=== PATIENT | male | born 1955 | race Caucasian/White ===

== ENCOUNTER 2022-11-01 07:05 | Emergency (ER) | payer MEDICARE, SELFPAY ==
[2022-11-01] VITALS (21 sets, daily range): BP systolic 169–226; BP diastolic 80–102; PULSE 55–240; RESP 11–47; TEMP 36.6; O2SAT 97–98; BMI 21.9
--- NOTE | 2022-11-01 07:09 | ED_ITS ---
HPI - Altered Mental Status General Chief Complaint: Altered Mental Status Stated Complaint: CONFUSION Time Seen by Provider: 11/01/22 07:09 History of Present Illness HPI narrative: Patient brought into the emergency department Via EMS with a complaint of confusion. Family called EMS this morning stating the patient was confused during the night. Patient arrives awake alert oriented ?4 without any complaints. She states the caregiver told him he might need some IV fluids. Patient denies any headache. He denies any blurred vision, difficulty with speech, paresthesias, focal weakness. He denies any cough, runny nose, or sore throat. He denies any chest pain, shortness of breath. He denies any nausea, vomiting, diarrhea, constipation, or abdominal pain. Patient denies any flank pain, hematuria, dysuria. He denies any fall or trauma. He Parkinson's, MS, and hypertension. Patient states his neurologist is at [facility]. Patient took all of his medications this morning. Related Data Home Medications Medication Instructions Recorded Confirmed amlodipine 5 mg tablet 5 mg PO BID 11/01/22 11/01/22 baclofen 20 mg tablet 20 mg PO Q8H 11/01/22 11/01/22 carbidopa 25 mg-levodopa 100 mg 2 tab PO .4 times a day 11/01/22 11/01/22 tablet clonazepam 0.5 mg tablet 0.5 mg PO Q12H 11/01/22 11/01/22 clonidine HCl 0.3 mg tablet 0.3 mg PO Q12H 11/01/22 11/01/22 lisinopril 20 mg tablet 20 mg PO DAILY 11/01/22 11/01/22 tamsulosin 0.4 mg capsule 0.4 mg PO BID 11/01/22 11/01/22 Previous Rx's Medication Instructions Recorded levofloxacin 500 mg tablet 500 mg PO DAILY 7 days #7 tabs 11/01/22 Allergies Allergy/AdvReac Type Severity Reaction Status Date / Time No Known Drug Allergies Allergy Verified 11/01/22 07:14 Review of Systems ROS Status of ROS 10 or more systems reviewed and unremarkable except as noted in history and below Exam Narrative Exam Narrative: Nurses notes and vital signs reviewed and patient is not hypoxic. General: Nontoxic, Well-appearing and in no apparent distress. Skin: Warm, dry, no pallor noted. No Rash Head: Normocephalic, atraumatic. Neck: Supple, non-tender. Eye: Pupils are equal, round and EOMI. No scleral icterus. Ears, Nose, Mouth, and Throat: TM clear, no posterior oropharynx erythema or nasal mucosal hypertrophy, uvula is mid-line Oral mucosa is moist Cardiovascular: Regular Rate and Rhythm without murmur, gallop or rub. Respiratory: No accessory muscle use or respiratory distress. Lungs are clear to auscultation, no wheezing, rales or rhonchi Chest Wall: no tenderness Back: No midline thoracic or lumbar vertebral tenderness. No CVA tenderness Musculoskeletal: normal ROM, no calf or popliteal tenderness, no lower extremity edema/swelling GI: Abdomen is soft, non-distended. Normal bowel sounds. No tenderness to palpation. No rebound, guarding, or rigidity noted. Neurological: A&O x4. No focal cranial nerve dysfunction observed. Moves all extremities. Patient is able to ambulate slowly with a shuffled gait. Psychiatric: Cooperative and interactive. Normal mood and affect. Constitutional Vital Signs, click to edit/add: Last Vital Signs Temp 98 F 11/01/22 07:07 Pulse 66 11/01/22 09:40 Resp 17 11/01/22 09:40 BP 186/98 H 11/01/22 09:39 Pulse Ox 98 11/01/22 09:40 O2 Del Method Room Air 11/01/22 07:20 Course Vital Signs Vital signs: Vital Signs Temperature 98 F 11/01/22 07:07 Pulse Rate 62 11/01/22 07:07 Respiratory Rate 18 11/01/22 07:07 Blood Pressure 198/91 H 11/01/22 07:07 Pulse Oximetry 98 11/01/22 07:07 Oxygen Delivery Method Room Air 11/01/22 07:07 Temperature 98 F 11/01/22 07:07 Pulse Rate 66 11/01/22 09:40 Respiratory Rate 17 11/01/22 09:40 Blood Pressure 186/98 H 11/01/22 09:39 Pulse Oximetry 98 11/01/22 09:40 Oxygen Delivery Method Room Air 11/01/22 07:20 MDM - Altered Mental Status MDM Narrative Medical decision making narrative: Studies were done and show hypokalemia patient is given 50 mEq of potassium b icarbonate. Chest x-ray shows a left lower lobe infiltrate versus mass. Patient was given Levaquin IV. Discharge home on Levaquin by mouth. Patient is not hypoxic, denies any cough, chest pain, shortness of breath. He is afebrile, does not have leukocytosis. Patient and family were advised he needs to follow up with his primary care doctor to obtain a CT scan, versus a follow-up x-ray after the antibiotics to confirm resolution. Patient's blood pressure was 190/98. Patient was given Vasotec. All results were discussed with patient and mother. Patient is not hypoxic, does not have any complaints and there is no criteria for admission. At this time the patient is without objective evidence of an acute process requiring hospitalization or inpatient management. The patient has remained hemodynamically stable. No additional indication for emergent studies at this time. I answered all questions. Discussed discharge instructions including standard anticipatory guidance and what should prompt a return to the emergency department, including if they get worse are not getting better or develops any new or concerning symptoms. I've given them specific time frame in which to follow-up, and who to follow-up with. The patient demonstrates understanding. Patient is nontoxic and stable for discharge with outpatient follow-up. This note was created with the assistance of a speech recognition program. Although the intention is to generate documents that actually reflects the content of the visit, no guarantees can be provided that every mistake has been identified and corrected by editing. Lab Data Attestation: I reviewed the patient's lab results. Labs: Lab Results 11/01/22 11/01/22 Range/Units 07:31 07:49 WBC 7.4 (4.0-11.0) 10^3/uL RBC 4.50 L (4.70-6.10) 10^6/uL Hgb 13.2 L (14.0-18.0) g/dL Hct 39.9 L (42.0-54.0) % MCV 88.7 (80.0-94.0) fL MCH 29.3 (25.9-34.0) pg MCHC 33.1 (29.9-35.2) g/dL RDW 14.2 (11.0-15.0) % Plt Count 273 (150-450) 10^3/uL MPV 9.8 (9.5-13.5) fL Neut % (Auto) 61.3 (43.0-75.0) % Lymph % (Auto) 24.4 (20.5-60.0) % [place] % (Auto) 8.3 (1.7-12.0) % Eos % (Auto) 5.3 (0.9-7.0) % Baso % (Auto) 0.4 (0.2-2.0) % Neut # (Auto) 4.5 (1.4-6.5) 10^3/uL Lymph # (Auto) 1.8 (1.2-3.8) 10^3/uL [place] # (Auto) 0.6 (0.3-0.8) 10^3/uL Eos # (Auto) 0.4 (0.0-0.7) 10^3/uL Baso # (Auto) 0.0 (0.0-0.1) 10^3/uL Abs Immat Gran (auto) 0.02 (0.00-0.03) 10^3/uL Imm/Tot Granulo (auto) 0.3 (0.0-0.5) % Sodium 142 (136-145) mmol/L Potassium 2.6 L* (3.5-5.1) mmol/L Chloride 105 (98-107) mmol/L Carbon Dioxide 30.9 (21.0-32.0) mmol/L Anion Gap 8.7 BUN 15.0 (7.0-18.0) mg/dL Creatinine 0.79 (0.70-1.30) mg/dL Est GFR ( Amer) >60 (>=60) Est GFR (Non-Af Amer) >60 (>=60) BUN/Creatinine Ratio 19.0 Glucose 89 (74-106) mg/dL Calcium 8.9 (8.5-10.1) mg/dL Total Bilirubin 0.5 (0.2-1.0) mg/dL AST 15 (15-37) U/L ALT 7 L (16-63) U/L Alkaline Phosphatase 72 (46-116) U/L Troponin I High Sens 7.7 (4.0-76.1) pg/mL Total Protein 7.4 (6.4-8.2) g/dL Albumin 3.5 (3.4-5.0) g/dL Globulin 3.9 g/dL Albumin/Globulin Ratio 0.9 Urine Color Yellow (YELLOW) Urine Clarity Clear (CLEAR) Urine pH 6.5 (5.0-9.0) Ur Specific [place] 1.015 (1.005-1.025) Urine Protein Negative (NEG/TRACE) mg/dL Urine Glucose (UA) Negative (NEGATIVE) mg/dL Urine Ketones Negative (NEGATIVE) mg/dL Urine Occult Blood Negative (NEGATIVE) Urine Nitrite Negative (NEGATIVE) Urine Bilirubin Negative (NEGATIVE) Urine Urobilinogen 0.2 (0.2-1.0) EU/dL Ur Leukocyte Esterase Negative (NEGATIVE) ECG Data Attestation: I personally reviewed and interpreted this ECG as follows: Interpretation: Sinus rhythm 65 bpm. There are no acute ischemic changes. 1st degree AV block Discharge Plan Discharge Chief Complaint: Altered Mental Status Clinical Impression: Altered mental status, Pneumonia, Acute hypokalemia, Hypertension Patient Disposition: Home, Self-Care Time of Disposition Decision: 09:37 Condition: Good Mode of Transportation: Private Vehicle Prescriptions / Home Meds: New levofloxacin 500 mg tablet 500 mg PO DAILY 7 Days Qty: 7 0RF No Action amlodipine 5 mg tablet 5 mg PO BID baclofen 20 mg tablet 20 mg PO Q8H carbidopa-levodopa 25-100 mg tablet 2 tab PO .4 times a day clonazepam 0.5 mg tablet 0.5 mg PO Q12H clonidine HCl 0.3 mg tablet 0.3 mg PO Q12H lisinopril 20 mg tablet 20 mg PO DAILY tamsulosin 0.4 mg capsule 0.4 mg PO BID Instructions: Hypokalemia (ED), Altered Mental Status (ED), Pneumonia (ED) Additional Instructions: Follow-up with primary care doctor to discuss this visit. We'll need to get a CT scan of her chest, or an x-ray after he completed the antibiotics to ensure that the infiltrate has cleared and there is no mass. Stand Alone Forms: Portal Instructions Referrals: All Redmond DO [Primary Care Provider] - 1 week Discharge Date/Time: 11/01/22 09:58
--- NOTE | 2022-11-01 07:14 | ECG_ITS ---
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
[2022-11-01 07:40] LABS: Basophils Percent Auto 0.4 % (0.2-2.0); Eosinophils Absolute Auto 0.4 10^3/uL (0.0-0.7); Eosinophils Percent Auto 5.3 % (0.9-7.0); Hematocrit 39.9 % (42.0-54.0); Hemoglobin 13.2 g/dL (14.0-18.0); Immature Granulocytes Abs Auto 0.02 10^3/uL (0.00-0.03); Immature Granulocytes Pct Auto 0.3 % (0.0-0.5); Lymphocytes Absolute Auto 1.8 10^3/uL (1.2-3.8); Lymphocytes Percent Auto 24.4 % (20.5-60.0); Mean Corpuscular HGB Conc 33.1 g/dL (29.9-35.2); Mean Corpuscular Hemoglobin 29.3 pg (25.9-34.0); Mean Corpuscular Volume 88.7 fL (80.0-94.0); Mean Platelet Volume 9.8 fL (9.5-13.5); Monocytes Absolute Auto 0.6 10^3/uL (0.3-0.8); Monocytes Percent Auto 8.3 % (1.7-12.0); Neutrophils Absolute Auto 4.5 10^3/uL (1.4-6.5); Neutrophils Percent Auto 61.3 % (43.0-75.0); Platelet Count 273 10^3/uL (150-450); Red Cell Distribution Width 14.2 % (11.0-15.0); White Blood Count 7.4 10^3/uL (4.0-11.0)
--- NOTE | 2022-11-01 07:40 | CT_ITS ---
The [address] [address] Patient Name: BRANDY ROWAN MRN: [id number] date: 1955 Sex: M Assigned Patient Location: ER Current Patient Location: ER Accession/Order Number: [id number] Exam Date: 11/01/2022 07:25 Report Date: 11/01/2022 07:59 At the request of: RADHA HARVEY Procedure: CT head/brain wo con EXAMINATION: CT head/brain wo con HISTORY: MS CHANGES COMPARISON: No relevant comparison available. TECHNIQUE: Axial CT images were obtained without IV contrast. Dose reduction techniques were achieved by using automated exposure control and/or adjustment of mA and/or kV according to patient size and/or use of iterative reconstruction technique. FINDINGS: BRAIN: Areas of decreased attenuation involving the periventricular and subcortical deep white matter bilaterally, slightly greater within the right frontal lobe, favoring chronic small vessel ischemic changes. No edema, hemorrhage, mass, acute infarction, or inappropriate atrophy. CSF SPACES: No hydrocephalus, subarachnoid hemorrhage, or mass. Appropriate for age. SKULL: No fracture, mass, or other significant visible lesion. SINUSES: No significant mucosal thickening or fluid on the limited views. ORBITS: No appreciable abnormality on the limited views. OTHER: Negative CT/CT head/brain wo con IMPRESSION: 1. No intracranial hemorrhage or appreciable acute abnormality. 2. Age consistent atrophy and chronic small vessel ischemic changes. Electronically authenticated by: MU BARRETT Date: 11/01/2022 07:59
--- NOTE | 2022-11-01 07:40 | XR_ITS ---
The [address] [address] Patient Name: BRANDY ROWAN MRN: [id number] date: 1955 Sex: M Assigned Patient Location: ER Current Patient Location: ER Accession/Order Number: [id number] Exam Date: 11/01/2022 07:25 Report Date: 11/01/2022 07:51 At the request of: RADHA HARVEY Procedure: XR chest 1V EXAMINATION: XR chest 1V HISTORY: MS CHANGES COMPARISON: No relevant comparison available. FINDINGS: LUNGS: Area of increased density within left lung base approximately 4.1 cm in diameter. Right lung is clear. VASCULATURE: No increased pulmonary vasculature. PLEURA: No pneumothorax, effusion, or pleural thickening. CARDIAC: No cardiomegaly or cardiac silhouette abnormality. MEDIASTINUM: No visible mass or adenopathy. BONES: No fracture or visible bone lesion. OTHER: Negative. XR/XR chest 1V IMPRESSION: 1. Moderate left infrahilar infiltrates versus mass. Findings favor infiltrates/pneumonia. Electronically authenticated by: MU BARRETT Date: 11/01/2022 07:51
[2022-11-01 07:59] LABS: Alanine Aminotransferase 7 U/L (16-63); Albumin Globulin Ratio 0.9; Albumin Level 3.5 g/dL (3.4-5.0); Alkaline Phosphatase 72 U/L (46-116); Anion Gap 8.7; Aspartate Amino Transferase 15 U/L (15-37); Bilirubin Total 0.5 mg/dL (0.2-1.0); Calcium 8.9 mg/dL (8.5-10.1); Carbon Dioxide 30.9 mmol/L (21.0-32.0); Chloride 105 mmol/L (98-107); Estimated GFR (African America >60 (>=60); Estimated GFR (Non-African Ame >60 (>=60); Globulin 3.9 g/dL; Glucose 89 mg/dL (74-106); Sodium 142 mmol/L (136-145); Total Protein 7.4 g/dL (6.4-8.2); Troponin I High Sensitivity 7.7 pg/mL (4.0-76.1)
[2022-11-01 08:01] LABS: Potassium 2.6 mmol/L (3.5-5.1)
[2022-11-01 08:07] LABS: Bilirubin Urine NEGATIVE (NEGATIVE); Blood Urine NEGATIVE (NEGATIVE); Clarity Urine CLEAR (CLEAR); Color Urine YELLOW (YELLOW); Glucose Urine UA NEGATIVE (NEGATIVE); Ketones Urine NEGATIVE (NEGATIVE); Leukocyte Esterase Urine NEGATIVE (NEGATIVE); Nitrite Urine NEGATIVE (NEGATIVE); Protein Urine NEGATIVE (NEG/TRACE); Specific Gravity Urine 1.015 (1.005-1.025); Urine Microscopic Indicated NO; Urobilinogen Urine 0.2 EU/dL (0.2-1.0); pH Urine 6.5 (5.0-9.0)
[2022-11-01] MEDS: POTASSIUM BICARBONATE/CIT 25 MEQ TABLET EFF 50 MEQ PO (08:22)
[2022-11-01] MEDS: LEVOFLOXACIN IN DEXTROSE 5 % 750 MG/150 ML PIGGYBACK IV (08:23)
[2022-11-01] MEDS: 0.9 % SODIUM CHLORIDE 1,000 ML 1000 ML IV (08:23)
[2022-11-01] MEDS: ENALAPRILAT DIHYDRATE 1.25 MG/ML VIAL IV (09:39)
--- NOTE | 2022-11-01 09:54 | PC.NURSE ---
pt family is concerned with taking pt home at this time. family requested to speak with SS. Kenna was notified and is talking with family in the lobby. Dr. Chan was notified. per Dr. Chan pt is cleared to be discharged home at this time.
--- NOTE | 2022-11-01 10:20 | SWNOTE1 ---
SW was called down to ER waiting room by ER registration as family wanted to talk with LEW. Pt is being discharged. LEW met with pt, pt's mother, pt's sister, and pt's brother in law. Pt is alert and oriented at this time and so is his mother who is 97 years old. Pt lives with his mother. Pt's sister and brother in law have concerns about the living situation and that pt's mother is caring for pt at 89 years old. Pt sitting in wheelchair right now and has a cane. He voiced that he does get up and use his cane at home. They do have meals on wheels at home and a cleaning lady who comes in 1x every 2 weeks. Pt's mother uses a cane and walker at home. Pt's family concerned about safety at home and the well being of pt's mother and pt at home. LEW let everyone know that in order for pt to go to a alf residential or assisted living, pt would have to agree to do this since he is alert and oriented. At this time he does not. Pt's mother also stated they are fine at home. SW did let them know about pricing and also recommended the possibility of private caregivers coming in as well. LEW mentioned HH, but not sure pt would qualify and pt's sister voiced they do not do anything anyways. At this time, pt and pt's mother who he lives with voiced they are fine. Pt's mother agreed to take resources that LEW will print of area nursing homes and assisted living facilities and private caregivers. Pt's brother in law walked with SW to get resources. He did voice several concerns. He stated pt has fallen at home, pt's mother pushes him around in wheelchair, pt does not get up out of bed, he only showers 1x every 2 weeks, pt is now wetting the bed, pt's mother has to clean his sheets and wash them, concerns for pt not taking his meds properly, and just concerns for there safety at home. Pt's mother owns the home. Pt's brother in law voiced that pt can afford to pay for a alf, but he is not agreeable. At this time SW recommended to brother in law to make a report to Adult Protective Services. Pt's brother in law does voice understanding and took resources to family and will call APS.
== END 2022-11-01 09:58 | disposition home or self-care (01) ==
PROVIDERS: Emergency Provider Emergency Medicine; PCP Internal Medicine
DX: J18.9 Pneumonia, unspecified organism (principal); I10 Essential (primary) hypertension; E87.5 Hyperkalemia; R41.82 Altered mental status, unspecified; Z79.899 Other long term (current) drug therapy; I44.0 Atrioventricular block, first degree
CPT/HCPCS: 36415; 70450; 71045; 80053; 81003; 84484; 85025; 87040; 93005; 96361; 96374; 96375; 99285

== ENCOUNTER 2023-05-08 10:40 | Emergency (ER) | payer MEDICARE, SELFPAY ==
[2023-05-08 10:43] VITALS: BP 204/97; PULSE 84; RESP 20; TEMP 36.7; O2SAT 99; BMI 21.9
--- NOTE | 2023-05-08 10:46 | XR_ITS ---
The [address] [address] Patient Name: BRANDY ROWAN MRN: [id number] date: 1955 Sex: M Assigned Patient Location: ER Current Patient Location: ER Accession/Order Number: [id number] Exam Date: 05/08/2023 11:00 Report Date: 05/08/2023 11:21 At the request of: DARIUS STAPLES Procedure: XR shoulder RT min 2V PROCEDURE: XR shoulder RT min 2V HISTORY: fall, pain ; right shoulder pain COMPARISON: None. FINDINGS: BONES:Narrowing of the acromioclavicular joint with large undersurface osteophytes. Unremarkable glenohumeral joint. No fracture, dislocation, bone lesion. Irregularity of posterior right 5th rib suspected to be sequela of remote fracture. SOFT TISSUES:No visible soft tissue swelling. EFFUSION:None visible. OTHER: Negative. XR/XR shoulder RT min 2V IMPRESSION: 1. No acute bone abnormality. 2. Degenerative changes of the acromioclavicular joint which would predispose to rotator cuff injury. Electronically authenticated by: MU BARRETT Date: 05/08/2023 11:21
--- NOTE | 2023-05-08 10:47 | ED_ITS ---
HPI - Extremity Injury (Upper) General Chief Complaint: Extremity Injury, Upper Stated Complaint: FALL/R SHOULDER PAIN Time Seen by Provider: 05/08/23 10:46 Source: patient Mode of arrival: ambulance Limitations: no limitations History of Present Illness HPI narrative: 67-year-old male presents to the emergency department for pain in his right shoulder. He fell out of bed today about 9 AM and landed on his shoulder onto the floor. No other injury was sustained. He did not hit his head or a piece of furniture. No pain in the elbow or wrist. The pain is moderate and worse when he moves it. Related Data Home Medications Medication Instructions Recorded Confirmed amlodipine 5 mg tablet 5 mg PO BID 11/01/22 11/01/22 baclofen 20 mg tablet 20 mg PO Q8H 11/01/22 11/01/22 carbidopa 25 mg-levodopa 100 mg 2 tab PO .4 times a day 11/01/22 11/01/22 tablet clonazepam 0.5 mg tablet 0.5 mg PO Q12H 11/01/22 11/01/22 clonidine HCl 0.3 mg tablet 0.3 mg PO Q12H 11/01/22 11/01/22 lisinopril 20 mg tablet 20 mg PO DAILY 11/01/22 11/01/22 tamsulosin 0.4 mg capsule 0.4 mg PO BID 11/01/22 11/01/22 Previous Rx's Medication Instructions Recorded levofloxacin 500 mg tablet 500 mg PO DAILY 7 days #7 tabs 11/01/22 ibuprofen 800 mg tablet 800 mg PO Q8H PRN pain #20 tabs 05/08/23 Allergies Allergy/AdvReac Type Severity Reaction Status Date / Time No Known Drug Allergies Allergy Verified 11/01/22 07:14 Review of Systems ROS Narrative A ten point review of systems is negative except as noted above. PFSH PFSH Social History Smoking status: Former smoker Exam Narrative Exam Narrative: Nurses note and vital signs reviewed and patient is not hypoxic. General: The patient appears well and in no apparent distress. Patient is re sting comfortably on cart. Skin: Warm, dry, no pallor noted. There is no rash noted. Head: Normocephalic, atraumatic Eye: Normal conjunctiva, no drainage Ears, Nose, Mouth, and Throat: oral mucosa is moist. Nares patent. Cardiovascular: Regular Rate and Rhythm Respiratory: Patient is in no distress, no accessory muscle use, lungs are clear to auscultation, no wheezing, rales or rhonchi Back: non-tender GI: Soft and nontender Musculoskeletal: The right shoulder has no deformity or bruising or break in the skin. It has fair range of motion. The right elbow and wrist are nontender. Radial pulse 2+. Cervical spine and right ribs are nontender. Neurological: A&O, normal speech Psychiatric: Cooperative Constitutional Vital Signs, click to edit/add: Last Vital Signs Temp 98.1 F 05/08/23 10:43 Pulse 84 05/08/23 10:43 Resp 20 05/08/23 10:43 BP 204/97 H 05/08/23 10:43 Pulse Ox 99 05/08/23 10:43 O2 Del Method Room Air 05/08/23 10:43 Course Vital Signs Vital signs: Vital Signs Temperature 98.1 F 05/08/23 10:43 Pulse Rate 84 05/08/23 10:43 Respiratory Rate 20 05/08/23 10:43 Blood Pressure 204/97 H 05/08/23 10:43 Pulse Oximetry 99 05/08/23 10:43 Oxygen Delivery Method Room Air 05/08/23 10:43 Temperature 98.1 F 05/08/23 10:43 Pulse Rate 84 05/08/23 10:43 Respiratory Rate 20 05/08/23 10:43 Blood Pressure 204/97 H 05/08/23 10:43 Pulse Oximetry 99 05/08/23 10:43 Oxygen Delivery Method Room Air 05/08/23 10:43 MDM - Extremity Injury (Upper) MDM Narrative Medical decision making narrative: X-ray shows no acute findings. Repeat exam at 11:30 AM shows him to have full range of motion of the shoulder. I do not suspect a torn rotator cuff. He is prescribed ibuprofen and will follow-up with his PCP if symptoms do not improve. Treatment diagnosis and follow-up were discussed with the patient Imaging Data Right shoulder x-ray: Radiologist's impression: ITS Impressions Shoulder X-Ray 05/08/23 10:46 IMPRESSION: 1. No acute bone abnormality. 2. Degenerative changes of the acromioclavicular joint which would predispose to rotator cuff injury. Electronically authenticated by: MU BARRETT Date: 05/08/2023 11:21 Discharge Plan Discharge Stand Alone Forms: Portal Instructions Chief Complaint: Extremity Injury, Upper Clinical Impression: Contusion of right shoulder Patient Disposition: Home, Self-Care Time of Disposition Decision: 11:40 Condition: Good Mode of Transportation: Private Vehicle Prescriptions / Home Meds: New ibuprofen 800 mg tablet 800 mg PO Q8H PRN (Reason: pain) Qty: 20 0RF No Action amlodipine 5 mg tablet 5 mg PO BID baclofen 20 mg tablet 20 mg PO Q8H carbidopa-levodopa 25-100 mg tablet 2 tab PO .4 times a day clonazepam 0.5 mg tablet 0.5 mg PO Q12H clonidine HCl 0.3 mg tablet 0.3 mg PO Q12H lisinopril 20 mg tablet 20 mg PO DAILY tamsulosin 0.4 mg capsule 0.4 mg PO BID levofloxacin 500 mg tablet 500 mg PO DAILY 7 Days Qty: 7 0RF Instructions: Contusion in Adults (ED) Referrals: All Redmond DO [Primary Care Provider] - 1 week
== END 2023-05-08 12:29 | disposition home or self-care (01) ==
PROVIDERS: Emergency Provider Emergency Medicine; PCP Internal Medicine
DX: S40.011A Contusion of right shoulder, initial encounter (principal); W06.XXXA Fall from bed, initial encounter; Z79.899 Other long term (current) drug therapy; Z87.891 Personal history of nicotine dependence
CPT/HCPCS: 73030; 99283

== ENCOUNTER 2023-05-25 08:00 | Emergency (ER) | payer MEDICARE, SELFPAY ==
[2023-05-25] VITALS (43 sets, daily range): BP systolic 148–193; BP diastolic 79–114; PULSE 86–114; TEMP 37; O2SAT 89–97; BMI 18.8
--- OUTSIDE RECORDS SUMMARY | 2023-05-25 08:10 | XMS_ITS | CCD ---
Author Organization [facility] Care Team Providers Care Night Stocker Name Role Phone DR ALL REDMOND Primary Care Unavailable NOREEN ACOSTA Admitting Unavailable NOREEN ACOSTA Attending Unavailable NOREEN ACOSTA Consulting Unavailable All Redmond DO Primary Care Provider All Redmond DO Primary Care Provider All Redmond PROVIDER, UNKNOWN Admitting Unavailable PROVIDER, UNKNOWN Attending Unavailable PROVIDER, UNKNOWN Admitting Unavailable PROVIDER, UNKNOWN Attending Unavailable Angel Luis RAY Attending Unavailable Allergies Allergy Classification Reported Allergen(s) Allergy Type Date of Onset Reaction(s) Facility (1 source) No Known Medication Allergies; Translations: [No Known Medication Allergies] Propensity to adverse reactions (disorder) [facility] Repository Medications Current Medications Medication Drug Class(es) Dates Sig (Normalized) Sig (Original) amoxicillin 875 mg / clavulanate 125 mg oral tablet (1 source) Penicillin-class Antibacterial Start: 05-15-2023 take 1 tablet by mouth twice daily Amoxicillin-Pot Clavulanate Active 1 TAB PO Twice daily 20 May 15, 2023 12:00am baclofen 20 mg oral tablet (20 sources) gamma-Aminobutyric Acid-ergic Agonist Start: 05-12-2023 take 1 tablet by mouth three times daily Baclofen Active 0 .ROUTE .COMPLEX 90 May 12, 2023 5:08pm TAKE 1 TABLET BY MOUTH 3 TIMES A DAY Start: 04-11-2023 End: 05-12-2023 take 20 mg by mouth three times daily Baclofen Discontinued 20 MG PO Three times daily 90 April 13, 2023 1:27pm May 12, 2023 5:08pm Start: 10-01-2019 take 1 tablet by emerson th three times daily as needed baclofen (LIORESAL) 20 mg tablet TAKE ONE TABLET BY MOUTH 3 TIMES DAILY NEEDED 90 tablet 5 10/01/2019 Active Comment on above: TAKE ONE TABLET BY [facility] 3 TIMES DAILY NEEDED clonazePAM 0.5 mg oral tablet (17 sources) Benzodiazepine Start: 03-23-2023 clonazePAM 0.5 mg TAKE ONE TABLET BY MOUTH TWICE A DAY NEEDED FOR ANXIETY Orally bid for 30 days Feb, Active Start: 01-10-2023 take 1 tablet by emerson twice daily as needed for anxiety clonazePAM 0.5 mg TAKE ONE TABLET BY MOUTH TWICE A DAY NEEDED FOR ANXIETY for 30 Dec, Active Start: 09-17-2022 take 1 tablet by emerson twice daily as needed clonazePAM 0.5 mg 1 tablet Orally twice a day as needed Aug, Active Start: 04-29-2022 take 1 tablet by emerson twice daily as needed for anxiety clonazePAM 0.5 mg TAKE ONE TABLET BY MOUTH TWICE A DAY NEEDED FOR ANXIETY Apr, Active Comment on above: Take 0.5 mg by mouth as needed. potassium chloride 10 meq extended release oral tablet (16 sources) take 1 tablet by mouth every twelve hours Klor-Con 10 10 MEQ 1 tablet with food Orally Twice a day Active take 1 tablet by emerson once daily as needed Potassium Chloride ER 10 MEQ TAKE 1 TABL ET BY MOUTH DAILY for 90 Not-Taking/PRN tamsulosin hydrochloride 0.4 mg oral capsule (17 sources) alpha-Adrenergic Milana Start: 09-17-2022 take 1 capsule by mouth every twenty-four hours Tamsulosin HCl 0.4 MG 1 capsule Orally Once a day Aug, Active Start: 05-14-2022 take 1 capsule by [facility] every twenty-four hours Tamsulosin HCl 0.4 MG 1 capsule Orally Once a day for 30 days Apr, Active Comment on above: Take 0.4 mg by mouth . Completed/Discontinued Medications Medication Drug Class(es) Dates Sig (Normalized) Sig (Original) amLODIPine 5 mg oral tablet (17 sources) Dihydropyridine Calcium Channel Milana Start: 06-09-2019 take 1 tablet by mouth once daily amLODIPine (NORVASC) 5 mg tablet Take 1 tablet by mouth once daily. 0 06/09/2019 Active Comment on above: Take 1 tablet by emerson once daily. aspirin 325 mg delayed release oral tablet (9 sources) Platelet Aggregation Inhibitor, Nonsteroidal Anti-inflammatory Drug Start: 08-08-2010 take 1 tablet by mouth once daily aspirin, enteric coated (ECOTRIN) 325 mg ORAL EC tablet Take 1 tablet by mouth once daily. 0 08/08/2010 Active Comment on above: Take 1 tablet by emerson once daily. carbidopa 25 mg / levodopa 100 mg oral tablet (20 sources) Aromatic Amino Acid Decarboxylation Inhibitor, Aromatic Amino Acid Start: 11-19-2021 End: 03-07-2022 take 2 tablets by mouth four times daily carbidopa-levodopa (SINEMET 25-100) 25-100 mg per tablet Indications: Primary parkinsonism Take 2 tablets by mouth four times daily 240 tablet 0 03/07/2022 Active take 1 tablet by emerson two times weekly as needed Sinemet 25-100 MG 1 tablet as needed Orally Two times a Week Active Comment on above: Take 2 tablets by mo [facility] four times daily carvedilol 25 mg oral tablet (9 sources) alpha-Adrenergic Milana, beta-Adrenergic Milana Start: 3 take 1 tablet by mouth twice daily at mealtime CARVEDILOL 25 mg tablet Take 25 mg by mouth twice daily with meals. 0 02/15/2013 Active Comment on above: Take 25 mg by mouth twice daily with meals. cloNIDine hydrochloride 0.2 mg oral tablet (15 sources) Central alpha-2 Adrenergic Agonist Start: 3 take 1 tablet by mouth twice daily CLONIDINE 0.2 mg tablet Take 0.2 mg by mouth twice daily. 0 02/18/2013 Active take 1 tablet by emerson every twelve hours cloNIDine HCl 0.3 MG 1 tablet Orally aron ry 12 hours Active Comment on above: Take 0.2 mg by mouth twice daily. lisinopril 20 mg oral tablet (17 sources) Angiotensin Converting Enzyme Inhibitor Start: 02-15-2013 take 1 tablet by mouth twice daily LISINOPRIL 20 mg tablet Take 20 mg by mouth twice daily. 0 02/15/2013 Active take 1 tablet by emerson every twenty-four hours Lisinopril 20 MG 1 tablet Orally Once a day Active Comment on above: Take 20 mg by mouth twice daily. modafinil 100 mg oral tablet (8 sources) Sympathomimetic-like Agent Start: 0 take 1 tablet by mouth once daily modafinil (PROVIGIL) 100 mg tablet Indications: Malaise and fatigue TAKE ONE TABLET BY MOUTH ONCE DAILY 30 tablet 5 05/28/2019 Active Comment on above: TAKE ONE TABLET BY M OUTH ONCE DAILY solifenacin succinate 10 mg oral tablet (9 sources) Cholinergic Muscarinic Antagonist take 1 tablet by mouth once daily solifenacin (VESICARE) 10 mg tablet Take 10 mg by mouth once daily. 0 Active Comment on above: Take 10 mg by mouth once daily. Suprep Bowel Prep . (8 sources) Start: Suprep Bowel Prep . as directed Orally as directed for 1 dose(s) Sep, Not-Taking/PRN Start: 09-28-2014 Suprep Bowel P rep . as directed Orally as directed for 1 dose(s) Sep, Not-Taking Walker (ULTRA-LIGHT ROLLATOR) misc (9 sources) Start: 10-20-2018 Walker (ULTRA- LIGHT ROLLATOR) misc Indications: Multiple sclerosis (HCC) Nitro Light Weight Rollator with seat 1 Each 0 10/20/2018 Active Comment on above: Nitro Light Weight R ollator with seat Problems Active Problems Problem Classification Problem Date Documented Date Episodic/Chronic Anxiety disorders (14 sources) Generalized anxiety disorder; Translations: [Generalized anxiety disorder] Chronic Deficiency and other anemia (3 sources) Chronic anemia; Translations: [Anemia in other chronic diseases classified elsewhere] Onset: 12-10-2015 Chronic Deficiency and other anemia (1 source) Iron deficiency anemia; Translations: [Iron deficiency anemia] Episodic Disorders of lipid metabolism (6 sources) Hyperlipidemia; Translations: [Hyperlipidemia, unspecified] Onset: 09-15-2014 Chronic Disorders of teeth and jaw (1 source) Dental abscess; Translations: [Periapical abscess without sinus] 05-15-2023 Episodic Diverticulosis and diverticulitis (1 source) Diverticulosis of sigmoid colon; Translations: [Sigmoid diverticulosis] Chronic Essential hypertension (20 sources) Hypertensive disorder; Translations: [Essential (primary) hypertension] Onset: 03-08-2013 03-08-2013 Chronic Fluid and electrolyte disorders (8 sources) Hypokalemia; Translations: [Hypokalemia] Episodic Genitourinary symptoms and ill-defined conditions (2 sources) Nocturia Episodic Hyperplasia of prostate (16 sources) Lower urinary tract symptoms due to benign prostatic hypertrophy; Translations: [Benign prostatic hyperplasia with lower urinary tract symptoms] Onset: 06-14-2013 Chronic Inflammatory conditions of male genital organs (11 sources) Abscess of scrotum; Translations: [Inflammatory disorders of scrotum] Episodic Multiple sclerosis (20 sources) Multiple sclerosis; Translations: [Multiple sclerosis] Onset: 09-17-2011 09-17-2011 Chronic Nutritional deficiencies (3 sources) Vitamin D deficiency; Translations: [Vitamin D deficiency, unspecified] Onset: 09-15-2014 Chronic Osteoarthritis (3 sources) Osteoarthritis; Translations: [Unspecified osteoarthritis, unspecified site] Onset: 06-14-2013 Chronic Other aftercare (1 source) FPC (current) use of aspirin; Translations: [COUNTER TOP ASSEMBLER CURRENT USE OF ASPIRIN] Onset: 05-29-2021 Episodic Other aftercare (2 sources) Other middle or intermediate school principal (current) drug therapy; Translations: [OTH USP CURRENT DRUG THERAPY] Onset: 05-29-2021 Episodic Other and unspecified benign neoplasm (1 source) History of polyp of colon; Translations: [History of colon polyps] Episodic Other diseases of bladder and urethra (8 sources) Bladder muscle dysfunction - overactive; Translations: [Overactive bladder] Chronic Other diseases of bladder and urethra (8 sources) Neurogenic bladder; Translations: [Neuromuscular dysfunction of bladder, unspecified] Chronic Other diseases of bladder and urethra (3 sources) Neurogenic dysfunction of the urinary bladder; Translations: [Neuromuscular dysfunction of bladder, unspecified] Chronic Other diseases of bladder and urethra (3 sources) Overactive bladder; Translations: [Overactive bladder] Chronic Other diseases of veins and lymphatics (11 sources) Peripheral venous insufficiency; Translations: [Venous insufficiency (chronic) (peripheral)] Episodic Other diseases of veins and lymphatics (3 sources) Venous insufficiency (chronic) (peripheral) Episodic Other lower respiratory disease (2 sources) Other nonspecific abnormal finding of lung field Episodic Other screening for suspected conditions (not mental disorders or infectious disease) (1 source) Encounter for screening for malignant neoplasm of prostate Episodic Other upper respiratory infections (3 sources) Acute maxillary sinusitis; Translations: [Acute maxillary sinusitis, unspecified] Episodic Parkinson`s disease (20 sources) Parkinson's disease; Translations: [Parkinson's disease] Onset: 06-19-2020 Chronic Screening and history of mental health and substance abuse codes (1 source) Personal history of nicotine dependence; Translations: [PERSONAL HISTORY OF NICOTINE DEPEND] Onset: 05-29-2021 Episodic Substance-related disorders (6 sources) Mental disorder due to drug; Translations: [Nicotine dependence, cigarettes, with unspecified nicotine-induced disorders] Onset: 09-15-2014 Chronic Unclassified (1 source) Parkinson's disease; Translations: [Primary parkinsonism] Onset: 06-19-2020 06-19-2020 Chronic Past or Other Problems Problem Classification Problem Date Documented Da te Episodic/Chronic Abdominal pain (3 sources) Abdominal pain; Translations: [Unspecified abdominal pain] Onset: 09-16-2014 Episodic Cardiac dysrhythmias (9 sources) Palpitations; Translations: [Palpitations] Onset: 03-08-2013 03-08-2013 Episodic Deficiency and other anemia (3 sources) Anemia; Translations: [Anemia, unspecified] Onset: 12-10-2015 Episodic Immunizations and screening for infectious disease (3 sources) Vaccination given; Translations: [Encounter for immunization] Onset: 12-12-2015 Episodic Nonspecific chest pain (9 sources) Chest pain; Translations: [Chest pain, unspecified] Onset: 03-08-2013 03-08-2013 Episodic Other gastrointestinal disorders (3 sources) Constipation; Translations: [Constipation, unspecified] Onset: 09-16-2014 Episodic Other lower respiratory disease (3 sources) Dyspnea; Translations: [Other forms of dyspnea] Onset: 02-15-2018 Episodic Other nutritional; endocrine; and metabolic disorders (3 sources) Abnormal weight loss; Translations: [Abnormal weight loss] Onset: 09-15-2014 Episodic Residual codes; unclassified (3 sources) Tobacco user; Translations: [Tobacco use] Onset: 09-15-2014 Episodic Results Test Name Value Interpretation Reference Range Facility [facility] 04-16-2022 [facility] Telephone ([facility]) TIEN ROWAN ([id number]) 1955 Date Time Provider Department 04/16/22 CRISTO DUNAWAY [facility] During your visit today, we recorded the following information about you: Cecelia Leary Sec 04/16/2022 2:56 PM Signed Benjamin Call Name of caller : Tien Rowan Relationship to patient: Self Return call phone number : [phone] Reason for call : Other : Brief description of concern : Patient is calling and due to see you on and wanted to call and discuss switching one of his docs he no longer wants to see that prescribes another med and wants you to start doing this. He has not been seen by you since 2019 and told him he needs to come in but wants to talk to you anyway. Please call to discuss further. Cailin Huang RN 04/16/2022 3:15 PM Signed Called patient Identified by name and date of - Patient is asking for his [facility] providers to mange his Sinemet. He took his tablet on 04/15/2022. - He has not seen Dr. Mckee since 08/2020 - Last seen in our office 08/2019 - He has a follow up visit scheduled on 04/18/2022 with Ayaka Guerra APRN, [employer]. - Patient was advised that his care team would be updated. He was told that the [facility] providers do not typically manage Sinemet. Ayaka Guerra APRN.[employer] 04/17/2022 12:39 PM Signed Unfortunately I can not take over his Sinemet prescription. I am happy to place another consult to Movement disorder if he would like. This would need to be managed by someone in that department. Cailin Huang RN 04/17/2022 1:49 PM Signed Called patient Identified by name and date of Reviewed recommendations Patient verbalized understanding and agrees with plan Patient was advised to contact his PCP to see if he will reorder the Sinemet until he is seen by a movement disorder provider. We discussed that he needs to follow up in person annually with his providers so they can continue to provide medication refills based on their annual evaluations. Patient would like the order for movement order. Ayaka Guerra APRN.FRANSISCA 04/17/2022 4:13 PM Signed Consult to Movement disorder placed. Patient last seen in 2020 Cailin Huang RN 04/18/2022 10:42 AM Signed Called patient, left message to call office If patient returns call, please relay message below: Is the patient keeping his appointment scheduled for today, 04/18/2022, @ 2:245 pm? If he needs to cancel, please transfer him to scheduling to reschedule with her. Ayaka Guerra APRN, CNP, did place a movement disorder order(neurology) in his chart. He may call [phone] to schedule an appointment with Dr. Sangeetha Stewart at [place]. Cailin Huang RN 04/18/2022 12:50 PM Signed Called patient Identified by name and date of Reviewed recommendations Movement disorder order(neurology) is in his chart. He may call [phone] to schedule an appointment with Dr. Sangeetha Stewart at [facility]. Patient verbalized understanding and agrees with plan Appointment scheduled today with Ayaka Guerra APRN, CNP cancelled due to transportation issues. Patient will contact the [facility] schedulers to reschedule. 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 - modafinil (PROVIGIL) 100 mg tablet TAKE ONE TABLET BY MOUTH ONCE DAILY - Walker (ULTRA-LIGHT ROLLATOR) misc Nitro Light Weight Rollator with seat - solifenacin (VESICARE) 10 mg tablet Take 10 mg by mouth once daily. - tamsulosin ER (FLOMAX) 0.4 mg cap Take 0.4 mg by mouth. - clonazePAM (KLONOPIN) 0.5 mg tablet Take 0.5 mg by mouth as needed. - CARVEDILOL 25 mg tablet Take 25 mg by mouth twice daily with meals. - CLONIDINE 0.2 mg tablet Take 0.2 mg by mouth twice daily. - LISINOPRIL 20 mg tablet Take 20 mg by mouth twice daily. - aspirin, enteric coated (ECOTRIN) 325 mg ORAL EC tablet Take 1 tablet by mouth once daily. 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] 06/19/2020 Encounter Status:Closed by CAILIN HUANG [facility]22 [facility] ([id number]) 1955 M Date Time Provider Department 04/16/22 CRISTO DUNAWAY [facility] During your visit today, we recorded the following information about you: Kristin Urena 04/16/2022 3:00 PM Signed [place] Call Name of caller : Tien Rowan Relationship to patient: Self Return call phone number : [phone] Reason for call : Other : Brief description of concern : would like a call back about his appointment on Allergies As of Date: 04/16/2022 (No Known Allergies) Date Reviewed: 12/06/2020 Reviewed by: Meghan Toro Ma - Fully Assessed Reason for Visit: Patient Question [3177] Prescriptions as of 03/28/2023 - carbidopa-levodopa (SINEMET 25-100) 25-100 mg per tablet Take 2 tablets by mouth four times daily - baclofen (LIORESAL) 20 mg tablet TAKE ONE TABLET BY MOUTH 3 TIMES DAILY NEEDED - amLODIPine (NORVASC) 5 mg tablet Take 1 tablet by mouth once daily. - modafinil (PROVIGIL) 100 mg tablet TAKE ONE TABLET BY MOUTH ONCE DAILY - Walker (ULTRA-LIGHT ROLLATOR) misc Nitro Light Weight Rollator with seat - solifenacin (VESICARE) 10 mg tablet Take 10 mg by mouth once daily. - tamsulosin ER (FLOMAX) 0.4 mg cap Take 0.4 mg by mouth. - clonazePAM (KLONOPIN) 0.5 mg tablet Take 0.5 mg by mouth as needed. - CARVEDILOL 25 mg tablet Take 25 mg by mouth twice daily with meals. - CLONIDINE 0.2 mg tablet Take 0.2 mg by mouth twice daily. - LISINOPRIL 20 mg tablet Take 20 mg by mouth twice daily. - aspirin, enteric coated (ECOTRIN) 325 mg ORAL EC tablet Take 1 tablet by mouth once daily. 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 Damon Pacheco CBC AUTO DIFFon 05-28-2021 BASO # 0.0 103/ul Normal 0.0-0.1 [facility] Comment on above: Performed By: #### C BC #### [facility] [address] [address] [address] Damon Pacheco Basophils/100 WBC (Bld) 0.4 % Normal 0.2-2.0 [facility] Comment on above: Performed By: #### C BC #### [facility] [address] [place] [address] Dr. Damon Pacheco EO # 0.2 103/ul Normal 0.0-0.7 [facility] Comment on above: Performed By: #### C BC #### [facility] [address] [place] [address] Dr. Damon Pacheco Eosinophils/100 WBC (Bld) 1.6 % Normal 0.9-7.0 [facility] Comment on above: Performed By: #### C BC #### [facility] [address] [place] [address] Dr. Damon Pacheco Erythrocyte distribution width (RBC) [Ratio] 13.8 % Normal 11.0-15.0 [facility] Comment on above: Performed By: #### C BC #### [facility] [address] [place] [address] Dr. Damon Pacheco Hematocrit (Bld) [Volume fraction] 38.7 % Critically low 42.0-54.0 [facility] Comment on above: Performed By: #### C BC #### [facility] [address] [place] [address] Dr. Damon Pacheco Hemoglobin (Bld) [Mass/Vol] 12.7 g/dL Critically low 14.0-18.0 [facility] Comment on above: Performed By: #### C BC #### [facility] [address] [place] [address] Dr. Damon Pacheco IG # 0.03 10e3/ul Normal 0.00-0.03 [facility] Comment on above: Performed By: #### C BC #### [facility] [address] [place] [address] Dr. Damon Pacheco IG % 0.3 % Normal 0.0-0.5 [facility] Comment on above: Performed By: #### C BC #### [facility] [address] [place] [address] Dr. Damon Pacheco LYMPH # 0.8 103/ul Critically low 1.2-3.8 [facility] Comment on above: Performed By: #### C BC #### [facility] [address] [place] [address] Dr. Damon Pacheco Lymphocytes/100 WBC (Bld) 8.7 % Critically low 20.5-60.0 [facility] Comment on above: Performed By: #### C BC #### [facility] [address] [address] [address] Damon Pacheco MANUAL DIFF REQ NO Normal [facility] Comment on above: Performed By: #### C BC #### [facility] [address] [address] [address] Damon Pacheco MCH (RBC) [Entitic mass] 29.4 pg Normal 25.9-34.0 [facility] Comment on above: Performed By: #### C BC #### [facility] [address] [place] [address] Dr. Damon Pacheco MCHC (RBC) [Mass/Vol] 32.8 g/dL Normal 29.9-35.2 [facility] Comment on above: Performed By: #### C BC #### [facility] [address] [place] [address] Dr. Damon Pacheco MCV (RBC) [Entitic vol] 89.6 fL Normal 80.0-94.0 [facility] Comment on above: Performed By: #### C BC #### [facility] [address] [place] [address] Dr. Damon Pacheco MONO # 0.6 103/ul Normal 0.3-0.8 [facility] Comment on above: Performed By: #### C BC #### [facility] [address] [place] [address] Dr. Damon Pacheco Monocytes/100 WBC (Bld) 6.1 % Normal 1.7-12.0 [facility] Comment on above: Performed By: #### C BC #### [facility] [address] [place] [address] Dr. Damon Pacheco NEUT # 7.6 103/ul Critically high 1.4-6.[address] [facility] Comment on above: Performed By: #### C BC #### [facility] [address] [place] [address] Dr. Damon Pacheco Neutrophils/100 WBC (Bld) 82.9 % Critically high 43.0-75.0 [facility] Comment on above: Performed By: #### C BC #### [facility] [address] [place] [address] Dr. Damon Pacheco Platelet mean volume (Bld) [Entitic vol] 9.8 fL Normal 9.5-13.5 [facility] Comment on above: Performed By: #### C BC #### [facility] [address] [place] [address] Dr. Damon Pacheco PLT 393 103/ul Normal 150-450 [facility] Comment on above: Performed By: #### C BC #### [facility] [address] [address] [address] Damon Pacheco RBC 4.32 106/ul Critically low 4.70-6.10 [facility] Comment on above: Performed By: #### C BC #### [facility] [address] [place] [address] Dr. Damon Pacheco WBC 9.2 103/ul Normal 4.0-11.0 [facility] Comment on above: Performed By: #### C BC #### [facility] [address] [place] [address] Dr. Damon Pacheco DRUG SCREEN RAPID (URINE)on 05-28-2021 AMP Negative Normal NEGATIVE [facility] Comment on above: Performed By: #### D RUGRPD #### [facility] [address] [place] [address] Dr. Damon Pacheco BAR Negative Normal NEGATIVE [facility] Comment on above: Performed By: #### D RUGRPD #### [facility] [address] [place] [address] Dr. Damon Pacheco BUP Negative Normal NEGATIVE [facility] Comment on above: Performed By: #### D RUGRPD #### [facility] [address] [place] [address] Dr. Damon Pacheco BZO Negative Normal NEGATIVE [facility] Comment on above: Performed By: #### D RUGRPD #### [facility] [address] [place] [address] Dr. Damon Pacheco SEN Negative Normal NEGATIVE [facility] Comment on above: Performed By: #### D RUGRPD #### [facility] [address] [place] [address] Dr. Damon Pacheco CUT-OFFS SEE BELOW Normal [facility] Comment on above: Result Comment: AMP (Amphetamine): 500ng/mL, BAR (Barbituates): 200 ng/mL, BZO (Benzodiazepines): 150 ng/mL, BUP (Buprenorphine): 10 ng/mL, SEN (Cocaine): 150 ng/mL, mAMP (Methamphetamine): 500 ng/mL, MTD (Methadone): 200 ng/mL, OPI (Opiates): 100 ng/mL, OXY (Oxycodone): 100 ng/mL, PCP (Phencyclidine): 25 ng/mL, PPX (Propoxyphene): 300 ng/mL, THC (Cannabinoids): 50 ng/mL, TCA (Trycyclic Antidepressants): 300 ng/mL Performed By: #### D RUGRPD #### [facility] [address] [place] [address] Dr. Damon Pacheco DRUG CUT HEADER DRUG CLASS TEST SYSTEM CUT-OFF CONCENTRATIONS ARE FOLLOWS: Normal [facility] Comment on above: Performed By: #### D RUGRPD #### [facility] [address] [place] [address] Dr. Damon Pacheco mAMP Negative Normal NEGATIVE [facility] Comment on above: Performed By: #### D RUGRPD #### [facility] [address] [place] [address] Dr. Damon Pacheco MTD Negative Normal NEGATIVE [facility] Comment on above: Performed By: #### D RUGRPD #### [facility] [address] [place] [address] Dr. Damon Pacheco OPI Negative Normal NEGATIVE [facility] Comment on above: Performed By: #### D RUGRPD #### [facility] [address] [place] [address] Dr. Damon Pacheco OXY Negative Normal NEGATIVE [facility] Comment on above: Performed By: #### D RUGRPD #### [facility] [address] [place] [address] Dr. Damon Pacheco PCP Negative Normal NEGATIVE [facility] Comment on above: Performed By: #### D RUGRPD #### [facility] [address] [place] [address] Dr. Damon Pacheco PPX Negative Normal NEGATIVE [facility] Comment on above: Performed By: #### D RUGRPD #### [facility] [address] [place] [address] Dr. Damon Pacheco TCA Negative Normal NEGATIVE [facility] Comment on above: Performed By: #### D RUGRPD #### [facility] [address] [place] [address] Dr. Damon Pacheco THC Negative Normal NEGATIVE [facility] Comment on above: Performed By: #### D RUGRPD #### [facility] [address] [place] [address] Dr. Damon Pacheco ETHANOL (BLD ALC)on 05-29-19 ALC NOTE NOTE: 80 mg/dl is the legal limit for a blood alcohol level Normal [facility] Comment on above: Performed By: #### A CET, SALYC, ETH, BMP #### [facility] [address] [place] [address] Dr. Damon Pacheco Ethanol [Mass/Vol] mg/dL Normal [facility] Comment on above: Performed By: #### A CET, SALYC, ETH, BMP #### [facility] [address] [place] [address] Dr. Damon Pacheco PROF CHEM 8 (BAS METB)on Anion gap [Moles/Vol] 14.6 mmol/L Normal [facility] Comment on above: Performed By: #### A CET, SALYC, ETH, BMP #### [facility] [address] [place] [address] Dr. Damon Pacheco Calcium [Mass/Vol] 8.6 mg/dL Normal 8.5-10.1 [facility] Comment on above: Performed By: #### A CET, SALYC, ETH, BMP #### [facility] [address] [place] [address] Dr. Damon Pacheco Chloride [Moles/Vol] 103 mmol/L Normal 98-107 [facility] Comment on above: Performed By: #### A CET, SALYC, ETH, BMP #### [facility] [address] [address] [address] Damon Pacheco CO2 [Moles/Vol] 26.9 mmol/L Normal 22.0-30.0 [facility] Comment on above: Performed By: #### A CET, SALYC, ETH, BMP #### [facility] [address] [address] [address] Damon Pacheco Creatinine [Mass/Vol] 1.50 mg/dL Critically high 0.66-1.25 [facility] Comment on above: Performed By: #### A CET, SALYC, ETH, BMP #### [facility] [address] [address] [address] Damon Pacheco EGFR-AF [place] 57 mL/min/1.73m2 Critically low >=60 [facility] Comment on above: Performed By: #### A CET, SALYC, ETH, BMP #### [facility] [address] [place] [address] Dr. Damon Pacheco EGFR-NON AF [place] 47 mL/min/1.73m2 Critically low >=60 [facility] Comment on above: Performed By: #### A CET, SALYC, ETH, BMP #### [facility] [address] [address] [address] Damon Pacheco Glucose [Mass/Vol] 105 mg/dL Normal 74-106 [facility] Comment on above: Performed By: #### A CET, SALYC, ETH, BMP #### [facility] [address] [address] [address] Damon Pacheco Potassium [Moles/Vol] 3.5 mmol/L Normal 3.4-5.0 [facility] Comment on above: Performed By: #### A CET, SALYC, ETH, BMP #### [facility] [address] [place] [address] Dr. Damon Pacheco Sodium [Moles/Vol] 141 mmol/L Normal 137-145 [facility] Comment on above: Performed By: #### A CET, SALYC, ETH, BMP #### [facility] [address] [place] [address] Dr. Damon Pacheco Urea nitrogen [Mass/Vol] 18.0 mg/dL Normal 7.0-18.0 [facility] Comment on above: Performed By: #### A JONO, SOPHIA, ETH, BMP #### [facility] [address] [address] [address] Damon Pacheco Urea nitrogen/Creatinine [Mass ratio] 12.0 mg/mg Normal [facility] Comment on above: Performed By: #### A JONO, SALMARK, ETH, BMP #### [facility] [address] [address] [address] Damon Pacheco SALICYLATEon 05-28-2021 SALICYLATE 2.3 mg/dL Normal <=20.0 [facility] Comment on above: Performed By: #### A JONO, SALMARK, ETH, BMP #### [facility] [address] [address] [address] Damon Pacheco CNOVon 12-06-2020 CNOV Office Visit (NRESFV) TIEN ROWAN ([id number]) 1955 M Date Time Provider Department 12/06/20 3:00 PM JAY SOLANO NRESFV During your visit today, we recorded the following information about you: Temperature Pulse Blood pressure Weight 97.6 degrees 41/minute 128/62 60.8 kg Height 1.702 m Jay Solano DO 12/14/2020 9:15 AM Signed [facility] - NEW PATIENT EVALUATION Kem Sepulveda [id number] Pari Prabhakar/[id number] [facility] [address] [place], DO [address] [facility] [address] Tien Rowan is a 65 year old male who is seen in consultation for evaluation of parkinsonism. He is seen with cousin. HISTORY OF PRESENT ILLNESS: The patient was diagnosed with MS in 2003. He has had optic neuritis. The gait has worsened. He has used Copaxone [id number]; CellCept July 2007 - October 2009; Gilenya (SEP 2010-AUG 2012); Tecfidera (10/2012-06/2018, stopped due to relapse with MRI activity). His current treatment is Ocrevus which he started on 07/21/2018. The gait is impaired by findings consistent with ziezpptv-gh-nfil (FOG). There is no reported weakness. He has more trouble in carpet. There is no rigidity or bradykinesia noted. He is angry a lot since he lives with his 95-year-old mother. The cousin reports that he has a great deal of trouble with carpeted floor - her demonstration is most consistent with profound imalyvjb-gs-vgjc (FOG). Parkinson's Medications Schedule: awaken (7-8A) 9A 2P 7P 12A (bedtime) Sinemet 25/100 0 2 2 2 2 Previous Parkinson's Medications: None In addition, the following Parkinson-associated features were evaluated: Daily activities Difficulties with eating: No Difficulties in dressing: No Difficulties with hygiene activities: No Difficulties with handwriting: Yes: +micrographia Difficulties with doing hobbies and other activities: Yes: cannot do hunting or fishing Difficulties turning in bed: No Difficulties getting out of bed, car or chair: No Tremors/Gait/Balance Shaking or tremors: No Walking and balance problems: Yes: See History of Present Illness (HPI) Gait freezing: No Autonomic/Pain Lightheadeness on standing: No Urinary problems: No Constipation problems: Yes: uses Fleet enema Speech/Swallowing Speech problems: No Drooling: No Chewing and swallowing problems: No Sleep/Fatigue Problems sleeping at night: No Daytime sleepiness: No Fatigue: No REM sleep behavior disorder: No Mood/Behavior/Cognit ion Cognitive impairment: No Hallucinations and delusions: No Apathy: No Depression: No Anxiety: Yes - on treatment Review of Systems Respiratory: Negative for difficulty breathing and shortness of breath. Cardiovascular: Negative for chest pain. Gastrointestinal: Negative for abdominal pain. All other systems reviewed and are negative. ALLERGIES No Known Allergies Current Outpatient Medications Medication Sig - carbidopa-levodopa (SINEMET 25-100) 25-100 mg per tablet Take 2 tablets by mouth four times daily - baclofen (LIORESAL) 20 mg tablet TAKE ONE TABLET BY MOUTH 3 TIMES DAILY NEEDED - amLODIPine (NORVASC) 5 mg tablet Take 1 tablet by mouth once daily. - modafinil (PROVIGIL) 100 mg tablet TAKE ONE TABLET BY MOUTH ONCE DAILY - Walker (ULTRA-LIGHT ROLLATOR) misc Nitro Light Weight Rollator with seat - solifenacin (VESICARE) 10 mg tablet Take 10 mg by mouth once daily. - tamsulosin ER (FLOMAX) 0.4 mg cap Take 0.4 mg by mouth. - clonazePAM (KLONOPIN) 0.5 mg tablet Take 0.5 mg by mouth as needed. - CARVEDILOL 25 mg tablet Take 25 mg by mouth twice daily with meals. - CLONIDINE 0.2 mg tablet Take 0.2 mg by mouth twice daily. - LISINOPRIL 20 mg tablet Take 20 mg by mouth twice daily. - aspirin, enteric coated (ECOTRIN) 325 mg ORAL EC tablet Take 1 tablet by mouth once daily. No current facility-administere d medications for this visit. PAST MEDICAL AND SURGICAL HISTORY: has a past medical history of Hypertension, Multiple sclerosis (HCC), and Smoking. He also has no past medical history of Atrial fibrillation (HCC), Cancer (HCC), Chronic obstructive pulmonary disease (COPD) (HCC), Chronic renal insufficiency, Congestive heart failure (HCC), Coronary artery disease, Depression, Diabetes (HCC), Epilepsy (HCC), Obstructive sleep apnea, Steroid long-term use, Stroke (HCC), or Substance abuse (HCC). has a past surgical history that includes tonsillectomy hx; hemorrhoid - banding; carpal tunnel; and removal of kidney stone (2009). In addition, the patient denies a history of exposure to dopamine receptor blocking agents, denies history of encephalitis/meningi tis and denies significant exposure to insecticides/ pesticides/ heavy metals/ carbon monoxide Social History Tobacco Use - Smoking status: Former Smoker Packs/day: 1.00 Years: 30.00 Pack years: 30.00 (more content not included)... [facility] 10-11-2020 L Specimen: [id number] Received: 10/12/20 Status: GLADIS Rich Num: [id number] Spec Type: Surgical Subm Dr: Colt Loo MD Tissues: A Abscess (RT ARM MASS) Procedures: HE Stain, Gross/Micro L3 Patient Age/Sex Location Account Attending Physician Tien Rowan/Jarrod DOLAN [id number] Colt Loo MD SPEC NUM: [id number] RECD: 10/12/20 STATUS: MARYLINShaan VILLANUEVA NUM: [id number] TRACE: 10/11/20-[address]: Colt Loo MD ENTERED: 10/12/[address] [facility] [address]: Beny [facility] SPEC TYPE: Surgical DEPT: S ORDERED: HE Stain, Gross/Micro L3 ORDERED: HE Stain, Gross/Micro L3 Pathological Diagnosis Skin and soft tissue, right arm, excision: - Partially ruptured and inflamed epidermal inclusion cyst - Solar elastosis Clinical Information Arm abscess right Gross Description Received in formalin labeled with the patient's name, number and right arm mass are multiple fragments of caballero to yellow, ragged fibrous tissue, adipose tissue and skin, aggregating 2.5 x 1 x 1 cm. Entirely submitted in one cassette labeled A1. (SM/JS) Microscopic Description One glass slide with H E stained material has been examined. The microscopic findings support the above pathologic diagnosis. [id number] Specimen: [id number] Received: 10/12/20 Status: GLADIS Villanueva Num: [id number] Spec Type: Surgical Subm Dr: Colt Loo MD Tissues: A Abscess (RT ARM MASS) Procedures: HE Stain, Gross/Micro L3 Patient: Tien Rowan [id number] (Continued) Signed (signature on file) Malachi Vasques MD 10/13/20 1551 [facility] CNOVon 09-19-2020 CNOV Office Visit (NEADFV) TIEN ROWAN ([id number]) 1955 M Date Time Provider Department 09/19/20 3:20 PM KEM SEPULVEDA During your visit today, we recorded the following information about you: Temperature Pulse Respiration Blood pressure 96.4 degrees 44/minute 16/minute 139/65 Weight Height 60.8 kg 1.702 m Emerita Amezcuat 09/19/2020 5:56 PM Signed Cousin Rosaline with pt. Pt. denies any distress. No distress noted. Pt. color pink. Kem Sepulveda MD 09/19/2020 3:48 PM Signed Please increase the dose of carbidopa/levodopa to two tablets four times daily. Kem Sepulveda MD 09/19/2020 5:56 PM Signed He comes to the office today because of parkinsonism. Even with the increased dose of carbidopa-levodopa there has been no clinical improvement. Today on examination he is awake, alert, pleasant, cooperative and coherent. The rapid alternating movements of the fingers are mildly reduced bilaterally this a bit more so on the right. There is no significant postural tremor of the outstretched hands and fingers. He stands from the chair with at least mild to moderate difficulty. His posture is mild to moderately flexed with decreased arm swing. Again his stance is at least mild to moderately wide-based and the gait very prominently shuffling. The turns are very segmental. Cranial Nerves: II?visual lechuga full III IV ?extraocular movements normal save for some cogwheeling of the smooth pursuit movements and perhaps dysmetria VII?muscles of facial expression normal in power bilaterally Motor System: Strength in the deltoids, biceps, triceps, wrist extensors, finger extensors, interossei, iliopsoas, quadriceps, hamstrings and anterior tibialis is well-preserved save for least mild weakness in the anterior tibialis bilaterally. The tendon reflexes are symmetric. Other Observations: His facial expression is mildly hypomimic and there is a Myerson sign. Mild cogwheel rigidity is noted in the upper extremities and the neck. In summary, he has parkinsonian features but has not improved with increasing doses of carbidopa-levodopa. After further consideration we will refer him to one of our movement disorder specialists and instructions were provided for increasing the dose of carbidopa?levodopa. A follow-up visit has been scheduled. Referring Provider: KEM SEPULVEDA [[id number]] Allergies As of Date: 09/19/2020 (No Known Allergies) Date Reviewed: 09/19/2020 Reviewed by: Kem Sepulveda MD - Fully Assessed Reason for Visit: Established Patient [175] Cmt: following up for Parkinsons Parkinson's Disease [582] Primary Visit Diagnosis:Primary parkinsonism (HCC) [G20] Order(s):CONSULT TO NEUROLOGY [9019] Order #: [id number]: 1 FUTURE Prescriptions as of 09/19/2020 - iv contrast (will be provided with radiology test) MRI Brain Inject, intravenously, once for 1 dose.No IV access, insert saline lock prior to beginning of sedation, infusion, injection of imaging exam.Discontinue saline lock post exam. If Pt. has a central line or IVAD, may access for administration according to line specific nursing protocol.Once exam is complete flush line and de-access according to line specific nursing protocol in the MR contrast administration guidelines link - carbidopa-levodopa (SINEMET 25-100) 25-100 mg per tablet Take 1.5 tablets by mouth four times daily - baclofen (LIORESAL) 20 mg tablet TAKE ONE TABLET BY MOUTH 3 TIMES DAILY NEEDED - amLODIPine (NORVASC) 5 mg tablet Take 1 tablet by mouth once daily. - modafinil (PROVIGIL) 100 mg tablet TAKE ONE TABLET BY MOUTH ONCE DAILY - VITAMIN D2 50,000 unit capsule TAKE ONE CAPSULE ONCE EACH WEEK. - Walker (ULTRA-LIGHT ROLLATOR) misc Nitro Light Weight Rollator with seat - solifenacin (VESICARE) 10 mg tablet Take 10 mg by mouth once daily. - tamsulosin ER (FLOMAX) 0.4 mg cap Take 0.4 mg by mouth. - clonazePAM (KLONOPIN) 0.5 mg tablet Take 0.5 mg by mouth as needed. - CARVEDILOL 25 mg tablet Take 25 mg by mouth twice daily with meals. - CLONIDINE 0.2 mg tablet Take 0.2 mg by mouth twice daily. - LISINOPRIL 20 mg tablet Take 20 mg by mouth twice daily. - aspirin, enteric coated (ECOTRIN) 325 mg ORAL EC tablet Take 1 tablet by mouth once daily. Problem List As Of Date 09/19/2020 Noted Resolved Multiple sclerosis [G35] 09/17/2011 Palpitation [R00.2] 03/08/2013 Chest pain [R07.9] 03/08/2013 Hypertension [I10] 03/08/2013 Primary parkinsonism (HCC) [G20] 06/19/2020 Other instructions from your clinician: Please increase the dose of carbidopa/levodopa to two tablets four times daily. Disposition: Return in about 6 months (around 03/22/2021) for Parkinsonism. Follow-up and Disposition History Recorded Encounter Status:Closed by KEM SEPULVEDA on 09/19/20 [facility] CNOV Office Visit (NEMEFV) TIEN ROWAN ([id number]) 1955 M Date Time Provider Department 09/19/20 1:45 PM AYAKA GUERRA NEMEFV During your visit today, we recorded the following information about you: Pulse Blood pressure Weight Height 46/minute 142/69 60.8 kg 1.702 m Ayaka Guerra APRN.[employer] 09/19/2020 1:39 PM Addendum Labs (CBC, CMP, Vit D) UA/ UC Consider GI consult MRI in Feb 2021 Ayaka Guerra APRN.[employer] 09/19/2020 2:39 PM [facility] SCLEROSIS FOLLOWUP/ESTABLISHED PATIENT VISIT PRINCIPAL NEUROLOGIC DIAGNOSIS: Multiple Sclerosis ?? DISEASE HISTORY Onset: 2003 Diagnosis of MS: 2003 Disease course at onset: relapsing-remitting Current disease course: relapsing-remitting Prior disease therapy: ?- Copaxone [id number] ?- CellCept July 2007 - October 2009 ?- Gilenya (SEP 2010-AUG 2012) ?- Tecfidera (10/2012-06/2018, stopped due to relapse with MRI activity) Current disease therapy:?Ocrevus. Started: 07/21/2018 ?? Last MRI brain:?03/14/2020(sta ble) Last MRI cervical spine: NA Last MRI thoracic spine:?02/10/2019?(s table) Last MRI lumbar spine: 05/11/2018 (DDD) ? CHIEF COMPLAINT:?Follow-up on MS disease modifying therapy ? INTERVAL HISTORY: Usual treating team:?Bradley/ Charlie The patient is accompanied by his friend. The patient was last seen 03/14/2020, currently taking Ocrevus. Since the patient's last visit the patient reports overall feeling stable. Issues with current MS therapy: Tolerating medication without side effects. Feels like he is having a urinary tract infection Does receive botox injections to his bladder, last flomax BID is hlepful Over due for Ocrevus, zia Having episodes of vomiting without warning. GI upset when laying flat Vitamin D 5,000 international unit(s) Daily SUBJECTIVE AND REVIEW OF SYSTEMS: Neuro-QoL Functions (higher=better functioning) Office Visit from 03/14/2020 in Neurology Office Visit from 06/16/2018 in Neurology Office Visit from 12/03/2016 in Neurology Upper Extremity Domain T Score 37 (Patient-Rptd) 42.4 (Patient-Rptd) 32.71 (Patient-Rptd) Lower Extremity Domain T Score 34 (Patient-Rptd) 40.67 (Patient-Rptd) 35.89 (Patient-Rptd) Cognitive Function Domain T Score 43 (Patient-Rptd) 44.81 (Patient-Rptd) 44.4 (Patient-Rptd) Positive Affect Well Being T Score ? 44.09 (Patient-Rptd) 40.27 (Patient-Rptd) Ability To Participate In Social Roles T Score 42 (Patient-Rptd) 39.9 (Patient-Rptd) 39.9 (Patient-Rptd) Satisfaction With Social Roles T Score 40 (Patient-Rptd) 43.36 (Patient-Rptd) 45.37 (Patient-Rptd) Neuro-QoL Symptoms (higher=worse symptoms) Office Visit from 03/14/2020 in Neurology Office Visit from 06/16/2018 in Neurology Office Visit from 12/03/2016 in Neurology Sleep Domain T Score 47 (Patient-Rptd) 45.2 (Patient-Rptd) 57.96 (Patient-Rptd) Fatigue Domain T Score 54 (Patient-Rptd) 50.45 (Patient-Rptd) 54.47 (Patient-Rptd) Anxiety Domain T Score 54 (Patient-Rptd) 50.02 (Patient-Rptd) 51.52 (Patient-Rptd) Depression Domain T Score 53 (Patient-Rptd) 47.97 (Patient-Rptd) 46.06 (Patient-Rptd) Stigma Domain T Score 59 (Patient-Rptd) 55.77 (Patient-Rptd) 62.73 (Patient-Rptd) Emotional Behavior Dyscontrol T Score ? 56.74 (Patient-Rptd) 56.2 (Patient-Rptd) *NeuroQoL is a multi-domain patient-reported quality of life questionnaire. PHQ-9 Office Visit from 06/19/2020 in Neurology Office Visit from 03/14/2020 in Neurology PHQ-9 Score 4 9 *PHQ-9 is a questionnaire for depressive symptoms, with scores 0-4 indicating none, 5-9 mild, 10-14 moderate, 15-19 moderately severe, and 20-27 severe symptoms. PROMIS-10 Office Visit from 06/19/2020 in Neurology Office Visit from 03/14/2020 in Neurology Global Physical Health T Score 42.3 34.9 Global Mental Health T Score 43.5 36.3 0-10 Standard Pain Scale 3 3 *PROMIS-10 is a patient-reported quality of life measure, typically reported as physical and mental domains. Here scores are expressed as percentiles, where the lowest possible score is one, the highest possible score is 99, and 50 is average. Mood: Good/bright Bladder: frequency, hesitancy Bowel: Normal Fatigue: None Sleep: No problem/well Memory/Concentration : Normal PAST HISTORY was reviewed and updated: PAST MEDICAL HISTORY Diagnosis Date - Hypertension - Multiple sclerosis (HCC) 2004 - Smoking PAST SURGICAL HISTORY Procedure Laterality Date - CARPAL TUNNEL right wrist 25 years ago - HEMORRHOID: RUBBERBAND, SINGLE/MULTIPLE 30 years ago - REMOVAL OF KIDNEY STONE 2009 stent and removal - TONSILLECTOMY HX 50 years ago MEDICATIONS and ALLERGIES were reviewed and updated. SOCIAL HISTORY was reviewed and updated: Social History Tobacco Use Smoking status: Former Smoker Packs/day: 1.00 Years: 30.00 Pack years: 30 Quit date: 01/15/2018 Y (more content not included)... [facility] 06-20-2020 [facility] Telephone (NEADFV) TIEN ROWAN ([id number]) 1955 Date Time Provider Department 06/20/20 KEM SEPULVEDA During your visit today, we recorded the following information about you: Roxann Joseph [facility] 06/20/2020 3:03 PM Signed Patient states he was seen yesterday and the doctor was going to increase the Carbidopa to 1 1/2 tabs to be sent to the pharmacy, he went today and they do not have the new script? Patient can be reached at M [phone] Rocio Arias 06/20/2020 3:10 PM Signed New rx pended per directions from yesterday. Please increase the dose of carbidopa-levodopa to one and one-half tablet four times daily. Kem Sepulveda MD 06/20/2020 6:59 PM Signed Prescription order filed. Kem Sepulveda MD Allergies As of Date: 06/20/2020 (No Known Allergies) Date Reviewed: 06/19/2020 Reviewed by: Kem Sepulveda MD - Fully Assessed Reason for Visit: medication needed [Other] Visit Diagnosis:Primary parkinsonism (HCC) [G20] Order(s):carbidopa-l evodopa (SINEMET 25-100) 25-100 mg per tabletTake 1.5 tablets by mouth four times dailyDisp: 180 tabletRfl: 3 Prescriptions as of 06/20/2020 Sig: CARBIDOPA 25 MG-LEVODOPA 100 * Take 1.5 tablets by mouth fou* BACLOFEN 20 MG TABLET TAKE ONE TABLET BY MOUTH 3 TI* AMLODIPINE 5 MG TABLET Take 1 tablet by mouth once d* MODAFINIL 100 MG TABLET TAKE ONE TABLET BY MOUTH ONCE* VITAMIN D2 1,250 MCG (50,000 * TAKE ONE CAPSULE ONCE EACH WE* WALKER Nitro Light Weight Rollator w* SOLIFENACIN 10 MG TABLET Take 10 mg by mouth once kareem* TAMSULOSIN 0.4 MG CAPSULE Take 0.4 mg by mouth. CLONAZEPAM 0.5 MG TABLET Take 0.5 mg by mouth as neede* CARVEDILOL 25 MG TABLET Take 25 mg by mouth twice cheryl* CLONIDINE HCL 0.2 MG TABLET Take 0.2 mg by mouth twice da* LISINOPRIL 20 MG TABLET Take 20 mg by mouth twice cheryl* * ASPIRIN 325 MG TABLET,DELAYED* Take 1 tablet by mouth once d* Problem List As Of Date 06/20/2020 Noted Resolved Multiple sclerosis [G35] 09/17/2011 Palpitation [R00.2] 03/08/2013 Chest pain [R07.9] 03/08/2013 Hypertension [I10] 03/08/2013 Primary parkinsonism (HCC) [G20] 06/19/2020 Prescriptions ordered this encounter Disp Refills Start End CARBIDOPA 25 MG-LEVODOPA 100 MG TABL* 180 * 3 06/20/2020 Sig: Take 1.5 tablets by mouth four times daily Medications Discontinued During This Encounter Prescriptions - carbidopa-levodopa (SINEMET 25-100) 25-100 mg per tablet (Discontinued) Take one tablet by mouth four times daily Encounter Status:[facility]NEAD[facility] TIEN ROWAN ([id number]) 1955 M Date Time Provider Department 06/19/20 2:20 PM KEM SEPULVEDA During your visit today, we recorded the following information about you: Temperature Pulse Blood pressure Weight 97.6 degrees 96/minute 156/74 59.9 kg Height 1.702 m Kem Sepulveda MD 06/19/2020 2:54 PM Signed Please increase the dose of carbidopa-levodopa to one and one-half tablet four times daily. Please call us in about two weeks to advise us of your response. Kem Sepulveda MD 09/19/2020 5:59 PM Addendum He is seen in follow-up today because of suspect parkinsonism. There has been no response to the carbidopa?levodopa even with increasing the dose to one 25-100 mg tablet 4 times daily. What he finds the most troublesome is an inability to lift his right leg, particularly early in the morning. Today on examination he is awake, alert, pleasant, cooperative and coherent. He can stand from his chair with little in the way of difficulty. His posture is mild to moderately flexed with decreased arm swing. Stance is at least mildly wide-based and the gait prominently shuffling. The rapid alternating movements of the fingers are well preserved on the right but at least moderately impaired on the left. There is a mild, low to medium amplitude, medium to fast irregular frequency postural tremor of the hands and fingers. Cranial Nerves: II?visual lechuga full save for a suspect defect referable to the left superior nasal retina III IV ?extraocular movements full but a bit disconjugate with some cogwheeling of the smooth pursuit movements VII?muscles of facial expression normal in power bilaterally Motor System: The tendon reflexes are symmetric. Other Observations: His facial expression is at least mildly hypomimic and there is a Myerson sign. Speech is at least mild to moderately hypophonic. Mild cogwheel rigidity is noted in the upper extremities and the neck. In summary, there has been no significant lessening of his parkinsonian symptoms. After further consideration instructions for increasing the dose of carbidopa- levodopa were provided and they are to contact us to advise as to his response. A follow-up visit has been scheduled. Referring Provider: KEM SEPULVEDA [[id number]] Allergies As of Date: 06/19/2020 (No Known Allergies) Date Reviewed: 06/19/2020 Reviewed by: Kem Sepulveda MD - Fully Assessed Reason for Visit: Established Patient [175] Parkinson's Disease [582] Visit Diagnosis:Primary parkinsonism (HCC) [G20] Prescriptions as of 09/19/2020 - iv contrast (will be provided with radiology test) MRI Brain Inject, intravenously, once for 1 dose.No IV access, insert saline lock prior to beginning of sedation, infusion, injection of imaging exam.Discontinue saline lock post exam. If Pt. has a central line or IVAD, may access for administration according to line specific nursing protocol.Once exam is complete flush line and de-access according to line specific nursing protocol in the MR contrast administration guidelines link - carbidopa-levodopa (SINEMET 25-100) 25-100 mg per tablet Take 1.5 tablets by mouth four times daily - baclofen (LIORESAL) 20 mg tablet TAKE ONE TABLET BY MOUTH 3 TIMES DAILY NEEDED - amLODIPine (NORVASC) 5 mg tablet Take 1 tablet by mouth once daily. - modafinil (PROVIGIL) 100 mg tablet TAKE ONE TABLET BY MOUTH ONCE DAILY - VITAMIN D2 50,000 unit capsule TAKE ONE CAPSULE ONCE EACH WEEK. - Walker (ULTRA-LIGHT ROLLATOR) misc Nitro Light Weight Rollator with seat - solifenacin (VESICARE) 10 mg tablet Take 10 mg by mouth once daily. - tamsulosin ER (FLOMAX) 0.4 mg cap Take 0.4 mg by mouth. - clonazePAM (KLONOPIN) 0.5 mg tablet Take 0.5 mg by mouth as needed. - CARVEDILOL 25 mg tablet Take 25 mg by mouth twice daily with meals. - CLONIDINE 0.2 mg tablet Take 0.2 mg by mouth twice daily. - LISINOPRIL 20 mg tablet Take 20 mg by mouth twice daily. - aspirin, enteric coated (ECOTRIN) 325 mg ORAL EC tablet Take 1 tablet by mouth once daily. 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 Please call us in about two weeks to advise us of your response. Disposition: Return in about 3 months (around 09/18/2020) for Parkinsonism. Follow-up and Disposition History Recorded Encounter Status:Closed by KEM SEPULVEDA on 06/19/20 [facility] 05-17-2020 [facility] Telephone (NEADFV) TIEN ROWAN ([id number]) 1955 M Date Time Provider Department 05/17/20 KEM SEPULVEDA During your visit today, we recorded the following information about you: Clementinebertrand Reeder Pss 05/17/2020 2:41 PM Signed Patient called stating Dr. Sepulveda increased his Carbidopa Levodopa from three times daily to four times daily a couple of weeks ago. Because of the increase, he has run out of medication early. Please send a new script with new instructions to [facility] in [place]. Nelli Fletcher, RN, RN 05/17/2020 3:08 PM Signed Refill for Carbidopa-Levodopa updated with new dosing, pended and routed for review/filing by Dr. Sepulveda. Kem Sepulveda MD, MD 05/17/2020 4:26 PM Signed Prescription order filed. 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] Order(s):carbidopa-l evodopa (SINEMET 25-100) 25-100 mg per tabletTake one tablet by mouth four times dailyDisp: 120 tabletRfl: 3 Prescriptions as of 05/17/2020 Sig: CARBIDOPA 25 MG-LEVODOPA 100 * Take one tablet by mouth four* BACLOFEN 20 MG TABLET TAKE ONE TABLET BY MOUTH 3 TI* PERFLUTREN LIPID MICROSPHERES* Inject 1.3 mL intravenously a* AMLODIPINE 5 MG TABLET Take 1 tablet by mouth once d* MODAFINIL 100 MG TABLET TAKE ONE TABLET BY MOUTH ONCE* VITAMIN D2 1,250 MCG (50,000 * TAKE ONE CAPSULE ONCE EACH WE* WALKER Nitro Light Weight Rollator w* SOLIFENACIN 10 MG TABLET Take 10 mg by mouth once kareem* TAMSULOSIN 0.4 MG CAPSULE Take 0.4 mg by mouth. CLONAZEPAM 0.5 MG TABLET Take 0.5 mg by mouth as neede* CARVEDILOL 25 MG TABLET Take 25 mg by mouth twice cheryl* CLONIDINE HCL 0.2 MG TABLET Take 0.2 mg by mouth twice da* LISINOPRIL 20 MG TABLET Take 20 mg by mouth twice cheryl* * ASPIRIN 325 MG TABLET,DELAYED* Take 1 tablet by mouth once d* Problem List As Of Date 05/17/2020 Noted Resolved Multiple sclerosis [G35] 09/17/2011 Palpitation [R00.2] 03/08/2013 Chest pain [R07.9] 03/08/2013 Hypertension [I10] 03/08/2013 Prescriptions ordered this encounter Disp Refills Start End CARBIDOPA 25 MG-LEVODOPA 100 MG TABL* 120 * 3 05/17/2020 Sig: Take one tablet by mouth four times daily Medications Discontinued During This Encounter Prescriptions - carbidopa-levodopa (SINEMET 25-100) 25-100 mg per tablet (Discontinued) Take 1 tablet by mouth three times daily. Or as directed. Encounter Status:Closed by CLEMENTINE BOLDEN on 06/07/20 [facility] CNOVon 03-22-2020 CNOV Office Visit (NEADFV) TIEN ROWAN ([id number]) 1955 M Date Time Provider Department 03/22/20 10:00 AM KEM SEPULVEDA During your visit today, we recorded the following information about you: Temperature Pulse Blood pressure Weight 97.2 degrees 54/minute 115/66 62.6 kg Height 1.702 m Kem Sepulveda MD, 03/22/2020 10:42 AM Signed Carbidopa-Levodopa Instructions: Take one-half tablet in the morning the first day, one-half in the morning and evening the second day, one-half tablet three times the third day, one in the morning one-half in the afternoon and evening the fourth day, one in the morning one-half in the afternoon and one in the evening the fifth day, then one tablet three times daily. Please contact us in about three weeks to advise us of your response. Kem Sepulveda MD, MD 06/19/2020 2:40 PM Addendum This is actually an office follow-up visit for this 64-year-old right-handed white male who has a past medical history significant for hypertension and Multiple Sclerosis the latter diagnosed in 1999. He estimates that he probably had symptoms for several years. Currently he is being treated with Ocrevus this for the last 2 years. He believes that this is been somewhat helpful. Concern has been raised with regard to the possibility of parkinsonism inasmuch as he has been noticing increasing difficulties with gait especially over the last 6 months at least in part related to difficulty moving the right leg. He has noted increasing difficulty getting into and out of automobiles and his posture has become quite flexed. Gait is really quite shuffling and he has a great deal of difficulty turning. There has never been any tremor. He reports that his handwriting has become smaller and illegible. They deny any change in his facial expression or speech and there has been no sialorrhea. Past Medical History: His past medical history is as previously delineated. Family History: There is no history in his family of inherited problems with coordination, muscular dystrophy, peripheral nerve disease, parkinsonism, dementia, recurrent troublesome headaches or seizure disorder. A paternal aunt had Multiple Sclerosis. Psychosocial History: He is and twice. He has no children. He quit smoking 2 years ago, was smoking about 1-1/2 pack of cigarettes daily and had smoked for about 20 years. This has included pipe and cigar smoking. He is a nondrinker. 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 Review of Systems: There is a remote history of headaches. There is no history of syncope or seizures. He denies any weakness, wasting, unusual cramping or twitching of his muscles, numbness or tingling aside from what we have already discussed or implied. There are no visual difficulties aside from wearing corrective lenses and he denies any aberration of his sense of hearing, taste or smell. Speech, swallowing, bladder and bowel function are unimpaired aside from a history of what sounds like urinary incontinence. There is no history of head injury sufficient to cause loss of consciousness, fracture of the spinal column, meningitis or encephalitis. Neurologic examination on March 22, 2020 revealed an awake, alert, pleasant, cooperative and coherent gentleman. There was a mild to moderate postural tremor this of low to medium amplitude and medium to fast irregular frequency of the outstretched hands/fingers this a bit more prominent on the right. His stance was at least mild to moderately wide-based and the posture quite flexed with decreased arm swing when ambulating. Gait was markedly shuffling with very prominent segmental turns. The rapid alternating movements in the tongue fingers and toes were performed well save for a mild reduction in the fingers and right toes with a moderate reduction in the left toes. They were also mildly reduced in the tongue. Hvezvl-eq-[id number] testing was performed without difficulty. Cranial Nerves: II?visual lechuga full III IV ?extraocular movements full save for some cogwheeling of the smooth pursuit movements. VII?muscles of facial expression normal in power bilaterally XII?tongue midline Motor System: Strength in the deltoids, biceps, triceps, wrist extensors, finger extensors, interossei, iliopsoas, quadriceps, hamstrings, anterior tibialis and toe extensors was actually well preserved. There was no significant tendon reflex asymmetry and no definite Babinski response. Sensory System: Joint position and vibration sensation were intact save for moderate decrement of vibration sensation in the left great toe. Other Observations: His facial expression was at least mildly hypomimic and there was a Myerson sign. I suspect mild cogwheel rigidity in both upper extremities and the neck (more content not included)... [facility] 03-14-2020 [facility] HNO ID: [id number] Author: Shauna MeredithRtRyan Sanchez Service: Radiology Author Type: Operators Teacher Type: [facility] Filed: 03/14/2020 12:59 PM Note Text: Radiology Service Progress Note DATE OF SERVICE: March 14, 2020 TIME: 12:30 PM PATIENT IDENTITY VERIFICATION COMPLETED USING TWO (2) STANDARD IDENTIFIERS: Name and Date of confirmed by patient verbally. FALL SCREENING: Has the patient had 2 falls in the last year or 1 fall with injury or currently using an Ambulatory Assistive Device (Walker, Cane, Wheelchair, Crutches, etc.)? Yes, Patient High Risk for Falls What interventions were put in place to prevent falls during this visit? [place] Falls Risk Wristband Applied, Instructed Patient to Call for Help if Needed, Offered Assistance with Transfers/Clothing, Instructed Patient to Remain Seated (Not on Exam Table) Until Exam and Increased Observations by Caregivers PATIENT GENDER DATA: Male PATIENT RELEVANT IMPLANT DATA REVIEWED: Yes ALLERGIES: Reviewed and updated CONTRAST ALLERGY: NO. EXAM: MRI - CONTRAST TYPE: GROUP II PERIPHERAL IV DATA: Ambulatory: A peripheral IV was started in the Left upper extremity with a Butterfly: 22 gauge. RADIOLOGY DEPARTMENT: MR; Exam(s) Completed: Head: Routine Brain SIGNATURE: RT Lorenzo PATIENT NAME: Tien Rowan DATE: March 14, 2020 TIME: 12:30 PM [facility] CNOVon 03-14-2020 CNOV Office Visit (NEMEFV) TIEN ROWAN ([id number]) 1955 M Date Time Provider Department 03/14/20 2:30 PM ESTEFANÍA ROSE PA-C During your visit today, we recorded the following information about you: Temperature Pulse Blood pressure Weight 98.2 degrees 50/minute 134/73 62.6 kg Height 1.702 m Estefanía Rose PA-C 03/14/2020 5:07 PM [facility] MULTIPLE SCLEROSIS FOLLOWUP/ESTABLISHED PATIENT VISIT PRINCIPAL NEUROLOGIC DIAGNOSIS: Multiple Sclerosis ?? DISEASE HISTORY Onset: 2003 Diagnosis of MS: 2003 Disease course at onset: relapsing-remitting Current disease course: relapsing-remitting Prior disease therapy: ?- Copaxone [id number] ?- CellCept July 2007 - October 2009 ?- Gilenya (SEP 2010-AUG 2012) ?- Tecfidera (10/2012-06/2018, stopped due to relapse with MRI activity) Current disease therapy:?Ocrevus. Started: 07/21/2018 ?? Last MRI brain: 03/14/2020(stable) Last MRI cervical spine: NA Last MRI thoracic spine: 02/10/2019 (stable) Last MRI lumbar spine: 05/11/2018 (DDD) ? CHIEF COMPLAINT:?Follow-up on MS disease modifying therapy ? INTERVAL HISTORY: Usual treating team:?Bradley/Allie ? Patient Is accompanied by . Last seen 06/09/2019. Currently taking Ocrevus. Last infusion was 02/02/2020. Tolerating well. Right leg dragging, getting worse with increased difficulty walking. Has a difficult time getting out of bed in the morning. Refusing to use wheelchair. Patient reports falling asleep at kitchen table after meals. Patient reports no recent falls. Quit smoking 1 year ago. Smoked for 20 years prior. Patient reports that he has not seen physical therapy but would like to continue. Swelling in legs improved from last visit. BP stable. Gets botox injections to bladder REVIEW OF SYSTEMS: Mood: flat affect Spasticity:None Bladder: See HPI Bowel: Normal Fatigue: Moderate Sleep: Normal Memory/Concentration : Normal PAST HISTORY was reviewed and updated: PAST MEDICAL HISTORY Diagnosis Date - Hypertension - Multiple sclerosis (HCC) 2003 - Smoking PAST SURGICAL HISTORY Procedure Laterality Date - CARPAL TUNNEL right wrist 25 years ago - HEMORRHOID: RUBBERBAND, SINGLE/MULTIPLE 30 years ago - REMOVAL OF KIDNEY STONE 2010 stent and removal - TONSILLECTOMY HX 50 years ago MEDICATIONS and ALLERGIES were reviewed and updated. SOCIAL HISTORY was reviewed and updated: Current living situation: At home with mother Current vocational status: Disabled EXAM: General Appearance: well appearing, in no acute distress Mental status evaluation during the interview and examination showed normal level of consciousness, orientation, language, memory, praxis, and higher intellectual function Affect: Flat Speech: normal Muscle strength (#/5): Right Left Upper Extremity: Deltoids 5 5 Biceps 5 5 Triceps 5 5 Acupuncture Physician 5 5 Dorsal interossei 5 5 Lower extremity: Iliopsoas 5 5 Quadriceps 5 5 Hamstrings 5 5 Tibialis anterior 5 5 Gastrocnemius 5 5 Coordination: Upper AND lower extremity dexterity and rapid movements: Impaired bilaterally Standing balance: Impaired Standard gait: Short, shuffling strides. Multi-step turn. Reduced arm swing Assistive device: cane RESULTS: Monitoring labs: None to review Discrete MRI Results Component Value Date Brain New T2 Lesions None 03/14/2020 Brain Enhancing Lesions None 03/14/2020 ASSESSMENT: Tien Rowan is a 64 year old male with MS, on Ocrevus with worsening of gait consistent with parkinsonism possibly related to MS. Would like to get opinion from movement clinic. Recommend outpatient PT with therapist with neurologic training. Encouraged use for rollator consistently for fall prevention. PLAN: 1. Continue Ocrevus 2. Consult to movement clinic 3. PT 4. Return in 6 months or sooner if needed I spent a total of 60 minutes on the date of the service which included preparing to see the patient, [id number] patient care, completing clinical documentation, obtaining and/or reviewing separately obtained history, performing a medically appropriate examination, counseling and educating the patient/family/careg iver, ordering medications, tests, or procedures, communicating with other HCPs (not separately reported), independently interpreting results (not separately reported), communicating results to the patient/family/careg iver and care coordination (not separately reported). 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 [facility] MRI BRAIN WO/W IVCONon 03-14 MRI BRAIN WO/W IVCON * * *Final Report* * * DATE OF EXAM: Mar 14 2020 1:09PM FV 0295 - MRI BRAIN WO/W IVCON / PROCEDURE REASON: Multiple sclerosis (HCC) * * * * Physician Interpretation * * * * EXAMINATION: MRI BRAIN WO/W IVCON HISTORY: Multiple sclerosis. Routine follow-up TECHNIQUE: Brain MRI with demyelinating disease protocol with and without IV gadolinium. MQ: [id number] Contrast: 13 cc Dotarem (IV) COMPARISON: MRI brain 02/10/2019 RESULT: MR BRAIN: Parenchymal Findings: There are multiple foci of hyperintensity on FLAIR and T2 within the white matter, compatible with the clinical diagnosis of multiple sclerosis. New T2 Lesions: None Interval Improvement: None. New Enhancing Lesions: None T2 [place] of Disease: Moderate. Parenchymal Volume Loss: Moderate. Other Significant Findings/Site(s) of New T2 Lesion(s): Scattered mild paranasal sinus mucosal thickening. Incidental partially empty sella. Prominent right suboccipital subcutaneous lipoma. IMPRESSION: Multiple intracranial white matter lesions compatible with multiple sclerosis. No new T2 lesions and no new enhancing lesions. Moderate parenchymal volume loss. Other Significant Intracranial Findings: None *Note: New T2 Lesions includes both new and enlarging plaques on T2-weighted FLAIR images (new lesions greater than or equal to 5mm3 or an increase in diameter of an existing lesion by greater than or equal to 2mm). Radial Drill Press Operator For Plastic: PSCB Transcribe Date/Time: Mar 14 2020 1:23P Dictated by : RYAN SALINAS MD This examination was interpreted and the report reviewed and electronically signed by: RYAN SALINAS MD on Mar 14 2020 1:27PM EST [id number] [facility] 10-21-2018 [facility] Telephone ([id number]) TIEN ROWAN ([id number]) 1955 M Date Time Provider Department 10/21/18 PAGE, MATILDA AVILA () [id number] During your visit today, we recorded the following information about you: Matilda Avila Page 10/21/2018 4:38 PM Signed Thank you for your referral to [facility]. Unfortunately, this patient resides outside of our service area. [facility] has agreed to provide service for your patient. They will be contacting the patient. Their number is [phone]. Thank you. Allergies As of Date: 10/21/2018 (No Known Allergies) Date Reviewed: 10/20/2018 Reviewed by: Estefanía Rose - Fully Assessed Reason for Visit: Home Care [4073] Prescriptions as of 10/21/2018 Sig: IV CONTRAST (RADIOLOGY PROCED* MRI Brain Inject, intravenous* IV CONTRAST (RADIOLOGY PROCED* MRI TSP Inject, intravenousl* WALKER Nitro Light Weight Rollator w* BACLOFEN 20 MG TABLET Take 1 tablet by mouth three * SOLIFENACIN 10 MG TABLET Take 10 mg by mouth once kareem* MODAFINIL 100 MG TABLET TAKE ONE TABLET ONCE DAILY ERGOCALCIFEROL (VITAMIN D2) 5* Take 1 capsule by mouth once * TAMSULOSIN 0.4 MG CAPSULE Take 0.4 mg by mouth. CLONAZEPAM 0.5 MG TABLET Take 0.5 mg by mouth as neede* CARVEDILOL 25 MG TABLET Take 25 mg by mouth twice cheryl* CLONIDINE HCL 0.2 MG TABLET Take 0.2 mg by mouth twice da* LISINOPRIL 20 MG TABLET Take 20 mg by mouth twice cheryl* AMLODIPINE 5 MG TABLET Take 5 mg by mouth twice kareem* * ASPIRIN 325 MG TABLET,DELAYED* Take 1 tablet by mouth once d* Problem List As Of Date 10/21/2018 Noted Resolved Multiple sclerosis [G35] INVALID FOR* Palpitation [R00.2] INVALID FOR* Chest pain [R07.9] INVALID FOR* Hypertension [I10] INVALID FOR* Encounter Status:Closed by PAGE, MATILDA [facility]YLER [facility][id number][facility] TIEN ROWAN ([id number]) 1955 M Date Time Provider Department 10/20/18 MATILDA MEDINA (SPRINKLING SYSTEM INSTALLER) [id number] During your visit today, we recorded the following information about you: Matilda Avila Page 10/20/2018 2:54 PM Signed Referral from [facility]. Patient lives outside our service area. Will attempt to find a provider to accept the referral. Allergies As of Date: 10/20/2018 (No Known Allergies) Date Reviewed: 10/20/2018 Reviewed by: Estefanía Rose - Fully Assessed Reason for Visit: Home Care [4073] Prescriptions as of 10/20/2018 Sig: IV CONTRAST (RADIOLOGY PROCED* MRI Brain Inject, intravenous* IV CONTRAST (RADIOLOGY PROCED* MRI TSP Inject, intravenousl* JOSE DANIEL Nitro Light Weight Rollator w* BACLOFEN 20 MG TABLET Take 1 tablet by mouth three * SOLIFENACIN 10 MG TABLET Take 10 mg by mouth once kareem* MODAFINIL 100 MG TABLET TAKE ONE TABLET ONCE DAILY ERGOCALCIFEROL (VITAMIN D2) 5* Take 1 capsule by mouth once * TAMSULOSIN 0.4 MG CAPSULE Take 0.4 mg by mouth. CLONAZEPAM 0.5 MG TABLET Take 0.5 mg by mouth as neede* CARVEDILOL 25 MG TABLET Take 25 mg by mouth twice cheryl* CLONIDINE HCL 0.2 MG TABLET Take 0.2 mg by mouth twice da* LISINOPRIL 20 MG TABLET Take 20 mg by mouth twice cheryl* AMLODIPINE 5 MG TABLET Take 5 mg by mouth twice kareem* * ASPIRIN 325 MG TABLET,DELAYED* Take 1 tablet by mouth once d* Problem List As Of Date 10/20/2018 Noted Resolved Multiple sclerosis [G35] INVALID FOR* Palpitation [R00.2] INVALID FOR* Chest pain [R07.9] INVALID FOR* Hypertension [I10] INVALID FOR* Encounter Status:Closed by MATILDA MEDINA on 10/20/18 [facility] CNPN Telephone ([id number]) TIEN ROWAN ([id number]) 1955 M Date Time Provider Department 10/20/18 MATILDA MEDINA (SPRINKLING SYSTEM INSTALLER) [id number] During your visit today, we recorded the following information about you: Matilda Avila Page 10/20/2018 5:04 PM Signed Referral from [facility], patient is out of our service area. Spoke to Jeannie at [facility]. She said they should be able to service the patient. Orders faxed. Will follow up tomorrow. Allergies As of Date: 10/20/2018 (No Known Allergies) Date Reviewed: 10/20/2018 Reviewed by: Estefanía Rose - Fully Assessed Reason for Visit: Home Care [[id number]] Prescriptions as of 10/20/2018 Sig: IV CONTRAST (RADIOLOGY PROCED* MRI Brain Inject, intravenous* IV CONTRAST (RADIOLOGY PROCED* MRI TSP Inject, intravenousl* WALKER Nitro Light Weight Rollator w* BACLOFEN 20 MG TABLET Take 1 tablet by mouth three * SOLIFENACIN 10 MG TABLET Take 10 mg by mouth once kareem* MODAFINIL 100 MG TABLET TAKE ONE TABLET ONCE DAILY ERGOCALCIFEROL (VITAMIN D2) 5* Take 1 capsule by mouth once * TAMSULOSIN 0.4 MG CAPSULE Take 0.4 mg by mouth. CLONAZEPAM 0.5 MG TABLET Take 0.5 mg by mouth as neede* CARVEDILOL 25 MG TABLET Take 25 mg by mouth twice cheryl* CLONIDINE HCL 0.2 MG TABLET Take 0.2 mg by mouth twice da* LISINOPRIL 20 MG TABLET Take 20 mg by mouth twice cheryl* AMLODIPINE 5 MG TABLET Take 5 mg by mouth twice kareem* * ASPIRIN 325 MG TABLET,DELAYED* Take 1 tablet by mouth once d* Problem List As Of Date 10/20/2018 Noted Resolved Multiple sclerosis [G35] INVALID FOR* Palpitation [R00.2] INVALID FOR* Chest pain [R07.9] INVALID FOR* Hypertension [I10] INVALID FOR* Encounter Status:Closed by PAGE, MATILDA AVILA on 10/20/18 [facility] Vital Signs Date Time Vital Sign Value Performing Clinician Facility 12-10-2022 13:45-0400 Body height 170.18 cm [facility] Other 12-10-2022 13:45-0400 Body mass index (BMI) [Ratio] 21.92 kg/m2 [facility] Other [facility] Other 12-10-2022 13:45-0400 Body weight 63.5 kg [facility] Other 12-10-2022 13:45-0400 Diastolic blood pressure 90 mm[Hg] [facility] Other [facility] Other 12-10-2022 13:45-0400 Respiratory rate 12 /min [facility] Other 12-10-2022 13:45-0400 Systolic blood pressure 160 mm[Hg] [facility] Other [facility] Other 09-23-2022 13:30-0400 Body height 170.18 cm [facility] [address] [facility] Other 09-23-2022 13:30-0400 Body mass index (BMI) [Ratio] 21.92 kg/m2 [facility] Other [facility] Other 09-23-2022 13:30-0400 Body weight 63.5 [address] [facility] [address] [facility] Other 09-23-2022 13:30-0400 Diastolic blood pressure 70 mm[Hg] [facility] Other [facility] Other 09-23-2022 13:30-0400 SaO2% (BldA) [Mass fraction] 7 % [facility] Other [facility] Other 09-23-2022 13:30-0400 Systolic blood pressure 120 mm[Hg] [facility] Other [facility] Other 05-14-2022 17:00-0400 Diastolic blood pressure 70 mm[Hg] [facility] Other [facility] Other 05-14-2022 17:00-0400 Systolic blood pressure 170 mm[Hg] [facility] Other [facility] Other Encounters Encounter Date Encounter Type Care Provider Facility Start: 05-15-2023 End: 05-15-2023 ambulatory [facility] Work Phone: Start: 05-15-2023 End: 05-15-2023 Patient encounter procedure [facility] Work Phone: Start: 04-11-2023 Non-patient / Non-visit [facility] Work Phone: Start: 03-23-2023 End: 03-23-2023 ambulatory [facility] Other Start: 03-23-2023 Telephone encounter [facility] Start: 03-03-2023 End: 03-04-2023 ambulatory Angel Luis RAY Facility:[facility] Start: 01-30-2023 End: 01-30-2023 ambulatory [facility] Other [facility] Other Start: 01-30-2023 Telephone encounter [facility] Start: 01-06-2023 ambulatory UNKNOWN PROVIDER Facili ty:[facility] Start: 12-23-2022 End: 12-23-2022 ambulatory [facility] Other Start: 12-23-2022 Telephone encounter [facility] Start: 12-10-2022 End: 12-10-2022 ambulatory [facility] Other Start: 12-10-2022 Office outpatient vi sit 25 minutes [facility] Start: 11-12-2022 End: 11-12-2022 ambulatory [facility] Other Start: 11-12-2022 Telephone encounter [facility] Start: 11-09-2022 ambulatory UNKNOWN PROVIDER Facili ty:[facility] Start: 11-04-2022 End: 11-04-2022 ambulatory [facility] Other [facility] Other Start: 11-04-2022 Telephone encounter [facility] Start: 09-23-2022 End: 09-23-2022 ambulatory [facility] Other Start: 09-23-2022 Patient encounter procedure [facility] Start: 06-12-2022 End: 06-12-2022 ambulatory Kem Sepulveda MD Work Phone: Neurology Comment on above: Parkinsonism, unspec ified Parkinsonism type (HCC) (Primary Dx) Start: 06-12-2022 End: 06-12-2022 Telemedicine consultation with patient Kem Sepulveda MD Work Phone: [facility] Start: 05-14-2022 End: 05-14-2022 ambulatory [facility] Other [facility] Other Start: 05-14-2022 Office outpatient vi sit 15 minutes [facility] Start: 04-16-2022 Telephone encounter Cristo winters MD Work Phone: [facility] Comment on above: Patient Question Start: 03-25-2022 Telephone encounter Ayaka Sun alondraceleste [employer] Work Phone: Neurology Comment on above: Appointment (LVM for pt with date and time of rescheduled appt advised pt to call and cancel/reschedule if appt does not work for them any PSS can assist) Start: 03-07-2022 Refill Kem alonso MD Work Phone: Neurology Comment on above: Refill Request Start: 01-28-2022 Telephone encounter Cristo winters MD Work Phone: [facility] Comment on above: Patient Question Refill Request Start: 12-25-2021 Refill Kem alonso MD Work Phone: Neurology Comment on above: Refill Request Start: 05-28-2021 End: 05-28-[address] [facility] Facility: Start: 09-20-2020 Adult health examination [facility] Other [facility] Other Procedures Date Procedure Procedure Detail Performing Clinician Screening for malign ant neoplasm of colon [facility] Other Plan of Treatment Date Care Activity Detail Author Start: 09-20-2023 DIABETES SCREEN DIABETES SCREEN [facility] Start: 09-20-2023 Diabetes Screening Diabetes Screenin g [facility] Start: 02-24-2023 Advance Directive Discussion Advance Directive Discussion [facility] Start: 02-24-2023 Depression Assessment Depression Ass essment [facility] Start: 10-25-2022 Covid-19 Vaccine () Covid-19 Vaccine ( season) [facility] Start: 10-25-2022 Influenza vaccination C [facility] Start: 02-24-2022 ADVANCE DIRECTIVE DISCUSSION ADVANCE DIRECTIVE DISCUSSION [facility] Start: 02-24-2022 DEPRESSION ASSESSMENT DEPRESSION ASS ESSMENT [facility] Start: 10-25-2021 Influenza vaccination INFLUENZA (#1) [facility] Start: 02-24-2021 ADVANCE DIRECTIVE DISCUSSION ADVANCE DIRECTIVE DISCUSSION [facility] Start: 02-24-2021 DEPRESSION ASSESSMENT DEPRESSION ASS ESSMENT [facility] Start: 09-22-2020 COVID-19 VACCINE (3 - Booster for Moderna series) COVID-19 VACCINE (3 - Booster for Moderna series) [facility] Start: 05-14-2019 Pneumococcal Vaccine : 65+ (1 of 1 - PCV) Pneumococcal Vaccine: 65+ (1 of 1 - PCV) [facility] Start: 05-14-2019 PNEUMOCOCCAL: 65+ (1 - PCV) PNEUMOCOCCAL: 65+ (1 - PCV) [facility] Start: 2014 RSV Vaccine (1 - 1-d ose 60+ series) RSV Vaccine (1 - 1-dose 60+ series) [facility] Start: 2009 PROSTATE CANCER SCRE ENING DISCUSSION PROSTATE CANCER SCREENING DISCUSSION [facility] Start: 2009 Prostate specific an tigen measurement Prostate Cancer Screening Discussion [facility] Start: 2004 SHINGRIX VACCINE (1 of 2) SHINGRIX V ACCINE (1 of 2) [facility] Start: 05-14-1999 COLOGUARD (FIT-DNA) COLOGUARD (FIT-D NA) [facility] Start: 05-14-1999 Colonoscopy COLONOSCOPY [facility] Start: 05-14-1999 COLORECTAL CANCER SCREENING COLORECTAL CANCER SCREENING [facility] Start: 05-14-[address] COLONOGRAPHY [facility] Start: 05-14-1999 FECAL OCCULT BLOOD FECAL OCCULT BLOO D [facility] Start: 05-14-1999 Screening for malign ant neoplasm of colon [facility] Start: 05-14-1999 [facility] Start: 1989 Lipid panel Lipid Screening [facility] Start: 1989 LIPID SCREEN LIPID SCREEN [facility] Start: 1973 Urine microalbumin profile [facility] Start: 1972 ANNUAL PCP TEAM MANAGER REVIEW [place]IO DISEASE VISIT ANNUAL PCP TEAM CHRONIC DISEASE VISIT [facility] Start: 1972 BP CONTROLLED (<130/80) BP CONTROLLE D (<130/80) [facility] Start: 1955 ABDOMINAL AORTIC ANE URYSM SCREENING ABDOMINAL AORTIC ANEURYSM SCREENING [facility] Start: 1955 Abdominal aortic ane urysm screening Abdominal Aortic Aneurysm Screening [facility] Immunizations Immunization Date Immunization Notes Care Provider Collin lemus 12-10-2022 influenza, high dose seasonal, preservative-free [facility] Other [facility] [employer] Other 12-10-2022 influenza virus vaccine, unspecified formulation [facility] 07-28-2020 COVID-19 original vaccine, full dose, monovalent (MODERNA) Kem Sepulveda MD Work Phone: [facility] Work Phone: 06-30-2020 COVID-19 original vaccine, full dose, monovalent (MODERNA) Kem Sepulveda MD Work Phone: [facility] Work Phone: 12-09-2017 influenza virus vaccine, split virus (incl. purified surface antigen) [facility] Other [facility] [employer] Other 12-09-2017 influenza virus vaccine, unspecified formulation Cristo Dunaway MD Work Phone: [facility] 12-09-2016 tetanus and diphther ia toxoids, adsorbed, preservative free, for adult use (5 Lf of tetanus toxoid and 2 Lf of diphtheria toxoid) [facility] Other [facility] 12-12-2015 influenza virus vaccine, split virus (incl. purified surface antigen) [facility] Other [facility] [employer] Other 12-12-2015 influenza virus vaccine, unspecified formulation [facility] 12-07-2014 pneumococcal conjuga te vaccine, 13 valent [facility] Other [facility] 12-07-2014 tetanus and diphther ia toxoids, adsorbed, preservative free, for adult use (5 Lf of tetanus toxoid and 2 Lf of diphtheria toxoid) [facility] Other [facility] 12-14-2013 tetanus and diphther ia toxoids, adsorbed, preservative free, for adult use (5 Lf of tetanus toxoid and 2 Lf of diphtheria toxoid) [facility] Other [facility] 11-24-2012 pneumococcal polysaccharide vaccine, 23 valent [facility] Other [facility] Payers Date Payer Category Payer Medicare [id number] 2022 Unknown [id number] 2021 Medicare [id number] 2020 Private Health Insurance [facility] AARP SUPPLEMENT [id number] 2020-Present [phone] [id number] [place] [address] Indemnity [id number] 2009 Medicare [id number] 1959 Medicare [id number] 1955 Unknown [id number] 1955 Unknown [id number] 1955 Unknown [id number] 1955 Unknown [id number] Medicare [id number] Self-pay Self Pay [id number] Social History Date Type Detail Facility Start: 04-14-2018 Tobacco smoking stat us NHIS Ex-smoker [facility] End: 01-15-2018 History of tobacco use Current smoker [facility] End: 01-15-2018 History of tobacco use Cigarette Smoker [facility] Start: 04-14-2018 End: 03-19-2022 Cigarettes smoked current (pack per day) - Reported 1 [facility] Start: 04-14-2018 Tobacco use and exposure Smoke less tobacco non-user [facility] Start: 12-06-2020 Alcohol intake Current non-dr marriage counselor of alcohol (finding) [facility] Start: 1955 Sex Assigned At Male C [facility] Start: 12-06-2020 End: 03-19-2022 Sex Assigned At [facility] Adult Depression Screening Assessment 2 [facility] Start: 12-31-2018 Gender identity Identifies as male gender (finding) [facility] Start: 12-31-2018 Sexual orientation Heterosexual (fin gisele) [facility] Clinical Notes 03-14-2020 to 12-10-2022 Note Date & Type Note Facility 12-10-2022 Evaluation note Encounter Date Diagnosis Assessment Notes Nov, Primary hypertension (ICD-10 - I10) This patient is instructed to consume a healthy, low-fat, low-salt diet. They are also encouraged to continue exercise to achieve/maintain a normal BMI. Increase Lisinopril to bid Patient is instructed on home BP measurements: - rest for 5 minutes w/o talking- positioned w/ feet on floor and arm supported- average best 2/3 readings w/ goal < 135/85 _update w/ results in couple weeks Nov, TEOFILO (generalized anxiety disorder) (ICD-10 - F41.1) Healthy diet, keep active. Nov, Chronic venous insufficiency (ICD-10 - I87.2) Avoid salt and elevate lower extremities, support stockings, inspect legs and feet daily for blisters and ulcerations. Nov, Multiple sclerosis (ICD-10 - G35) Stable, no acute exacerbations noted. f/u Neurology Nov, Parkinsons disease (ICD-10 - G20) Limited in ADL Used WC to propel back to office for exam He has shuffling gait w/ episodes of freezing. f/u Neurology Nov, Benign prostatic hyperplasia with lower urinary tract symptoms (ICD-10 - N40.1) Symptoms tolerable, yearly MARNI and PSA Nov, Nocturia (ICD-10 - R35.1) [facility] Other 09-19-2023 Evaluation note* Encounter Date Diagnosis Assessment Notes Treatment Notes Treatment Clinical Notes Oct, Pulmonary infiltrate (ICD-10 - R91.8) [facility] Other 09-11-2023 Evaluation note* Encounter Date Diagnosis Assessment Notes Treatment Notes Treatment Clinical Notes Oct, Lung mass (ICD-10 - R91.8) [facility] Other 07-31-2023 Evaluation note* Encounter Date Diagnosis Assessment Notes Treatment Notes Treatment Clinical Notes Aug, Medicare annual wellness visit, subsequent (ICD-10 - Z00.00) Personalized health advice was given to the beneficiary including a written plan for screenings discussed and provided. Advanced care planning reviewed and/or information given as requested. Additional counseling was provided here today in regards to, [ ]. The above visit was performed by [ ], under direct supervision of [ ]. Document reviewed and amended by provider signed below. Aug, Primary hypertension (ICD-10 - I10) This patient is instructed to consume a healthy, low-fat, low-salt diet. They are also encouraged to continue exercise to achieve/maintain a normal BMI. Aug, TEOFILO (generalized anxiety disorder) (ICD-10 - F41.1) Healthy diet, keep active and proper sleep routine No change in medical therapy Aug, Chronic venous insufficiency (ICD-10 - I87.2) Avoid salt and elevate lower extremities, support stockings, inspect legs and feet daily for blisters and ulcerations. Aug, Multiple sclerosis (ICD-10 - G35) Keep active Fall precautions Use assistive device for stability Aug, Parkinsons disease (ICD-10 - G20) Fall precautions f/u Neurology Aug, Screening PSA (prostate specific antigen) (ICD-10 - Z12.5) Yearly MARNI PSA Aug, High risk medication use (ICD-10 - Z79.899) Dr [facility] Other 03-21-2023 Evaluation note* Encounter Date Diagnosis Assessment Notes Treatment Notes Treatment Clinical Notes Apr, Chronic venous insufficiency (ICD-10 - I87.2) Avoid salt and elevate lower extremities, support stockings, inspect legs and feet daily for blisters and ulcerations. Apr, Primary hypertension (ICD-10 - I10) This patient is instructed to consume a healthy, low-fat, low-salt diet. They are also encouraged to continue exercise to achieve/maintain a normal BMI. Apr, TEOFILO (generalized anxiety disorder) (ICD-10 - F41.1) Healthy diet and keep active Apr, Benign prostatic hyperplasia with lower urinary tract symptoms (ICD-10 - N40.1) PSA and MARNI w/ Urology Apr, Multiple sclerosis (ICD-10 - G35) No change in medications, f/u Neurology Apr, Parkinsons disease (ICD-10 - G20) No change, f/u Neurology. Fall precautions Apr, Nocturia (ICD-10 - R35.1) Dr [facility] Other 02-23-2023 Miscellaneous Notes* Telephone Encounter - Cailin Huang RN - 04/18/2022 12:48 PM EST Called patient Identified by name and date of Reviewed recommendations Movement disorder order(neurology) is in his chart. He may call [phone] to schedule an appointment with Dr. Sangeetha Stewart at [facility]. Patient verbalized understanding and agrees with plan Appointment scheduled today with Ayaka Guerra APRN, CNP cancelled due to transportation issues. Patient will contact the [facility] schedulers to reschedule. * Telephone Encounter - Cailin Huang RN - 04/18/2022 10:39 AM EST Called patient, left message to call office If patient returns call, please relay message below: Is the patient keeping his appointment scheduled for today, 04/18/2022, @ 2:245 pm? If he needs to cancel, please transfer him to scheduling to reschedule with her. Ayaka Guerra APRN, CNP, did place a movement disorder order(neurology) in his chart. He may [phone] to schedule an appointment with Dr. Sangeetha Stewart at [facility]. * Telephone Encounter - Ayaka Guerra APRN.CNP - 04/17/2022 4:09 PM EST Consult to Movement disorder placed. Patient last seen in 2020 * Telephone Encounter - Cailin Huang RN - 04/17/2022 1:24 PM EST Called patient Identified by name and date of Reviewed recommendations Patient verbalized understanding and agrees with plan Patient was advised to contact his PCP to see if he will reorder the Sinemet until he is seen by a movement disorder provider. We discussed that he needs to follow up in person annually with his providers so they can continue to provide medication refills based on their annual evaluations. Patient would like the order for movement order. * Telephone Encounter - Ayaka Guerra APRN.CNP - 04/17/2022 12:38 PM EST Unfortunately I can not take over his Sinemet prescription. I am happy to place another consult to Movement disorder if he would like. This would need to be managed by someone in that department. * Telephone Encounter - Cailin Huang RN - 04/16/2022 3:08 PM EST Called patient Identified by name and date of - Patient is asking for his [facility] providers to mange his Sinemet. He took his tablet on 04/15/2022. - He has not seen Dr. Mckee since 08/2020 - Last seen in our office 08/2019 - He has a follow up visit scheduled on 04/18/2022 with Ayaka Guerra APRN, CNP. - Patient was advised that his care team would be updated. He was told that the [facility] providers do not typically manage Sinemet. * Telephone Encounter - Cecelia Andrews - 04/16/2022 2:54 PM EST Benjamin Call Name of caller : Tien Rowan Relationship to patient: Self Return call phone number : [phone] Reason for call : Other : Brief description of concern : Patient is calling and due to see you on and wanted to calland discuss switching one of his docs he no longer wants to see that prescribes another med and wants you to start doing this. He has not been seen by you since 2019 and told him he needs to come in but wants to talk to you anyway. Please call to discuss further. [facility] Miscellaneous Notes* Telephone Encounter - Kristin Urena - 04/16/2022 2:47 PM EST Benjamin Call Name of caller : Tien Rowan Relationship to patient: Self Return call phone number : [phone] Reason for call : Other : Brief description of concern : would like a call back about his appointment on documented in [facility] encounterTr[facility]01-30-2023 Miscellaneous Notes* Telephone Encounter - Vignesh Veloz - 03/25/2022 12:16 PM ESTSummary: Appointment LVM for pt with date and time of rescheduled appt advised pt to call and cancel/reschedule if appt does not work for them any PSS can assist documented in this encounterTr[facility]01-13-2023 Miscellaneous Notes* Telephone Encounter - Ayaka Guerra APRN.CNP - 03/08/2022 8:32 AM EST The following approved medication requests have been transmitted electronically. Requested Prescriptions Refused Prescriptions Disp Refills carbidopa-levodopa (SINEMET 25-100) 25-100 mg per tablet 240 tablet 0 Sig: Take 2 tablets by mouth four times daily Refused By: AYAKA GUERRA I Reason for Refusal: Prescriber not associated with this practice or location Ayaka Guerra APRN.[employer] * Telephone Encounter - Cecelia Andrews - 03/07/2022 1:54 PM EST Patient calling and out of med and his Physician that normally does it will not fill because has not been seen. Explained to him has to be seen yearly. Any questions, please call him at #[phone]. Source : call from patient requesting refill. Delivery : e-script Requested Prescriptions Pending Prescriptions Disp Refills carbidopa-levodopa (SINEMET 25-100) 25-100 mg per tablet 240 tablet 0 Sig: Take 2 tablets by mouth four times daily DX : Patient last seen: 10/03/2020 Next Appointment : 03/19/2022 Cecelia Andrews documented in this [facility]Tr[facility]-2023 Miscellaneous Notes* Telephone Encounter - Kem Sepulveda MD - 03/07/2022 6:36 PM EST Prescription order filed. Kem Sepulveda MD * Telephone Encounter - Rocio Arias - 03/07/2022 12:51 PM EST LM for patient to call office. Back re medication refill request and appointment. Last seen 09/19/2020. Was advised via [email or web address] 01/28/2022 to schedule follow up. Will forward this refill request to provider, but patient will need appointment for any future refills. * Telephone Encounter - Lore Sharpe - 03/07/2022 11:51 AM EST Patient states they are out of medication. Requested Prescriptions Pending Prescriptions Disp Refills carbidopa-levodopa (SINEMET 25-100) 25-100 mg per tablet 240 tablet 0 Sig: Take 2 tablets by mouth four times daily documented in this encounterTr[facility]12[facility]-2022 Miscellaneous Notes* Telephone Encounter - Kem Sepulveda MD - 01/28/2022 4:54 PM EST Prescription order filed. Kem Sepulveda MD documented [facility] this encounterTr[facility] Miscellaneous Notes* Telephone Encounter - Cailin Huang RN - 01/28/2022 2:31 PM EST Called patient Identified by name and date of - Patient is out of his Carbidopa-Levodopa 25-100 mg. Take 2 tablets four times daily. - He is asking if Dr. Dunaway can provide a refill due to difficulty reaching a caregiver in Dr. Sepulveda' office. - Contacted Dr. Sepulveda' office, spoke with nurse Carol. [facility]ill [facility] in [place], [place]. - Spoke with patient advised of the above and was advised to schedule a follow up with Dr. Sepulveda. * Telephone Encounter - Kristin Urena - 01/28/2022 2:17 PM EST Benjamin Call Name of caller : Tien Rowan Relationship to patient: Self Return call phone number : [phone] Reason for call : Other : Brief description of concern : tien is calling with concerns and questions about his medications documented in this [facility]Tr[facility]11[facility]-2022 Miscellaneous Notes* Telephone Encounter - Nelli Fletcher RN - 12/25/2021 4:28 PM EDT Refill request routed to covering provider for review. * Telephone Encounter - Fide Gallardo - 12/25/2021 1:40 PM EDT Physician: Dr Sepulveda Call from patient requesting refill. Please E-Scribe Patient is completely out of medication Requested Prescriptions Pending Prescriptions Disp Refills carbidopa-levodopa (SINEMET 25-100) 25-100 mg per tablet 240 tablet 0 Sig: Take 2 tablets by mouth four times daily Pharmacy Name: [facility] Phone #: [phone] Fide Gallardo documented in this encounterTr[facility]10-13-[facility]21 NoteHNO ID: [id number] Author: Jay Solano, DO Service: ? Author Type: Physician Type: Progress Notes Filed: 12/14/2020 9:15 AM Note Text: [facility] - NEW PATIENT EVALUATION Kem Sepulveda [address] [address]eb[address] [facility] [address] [place], DO [address] [facility] [address] Tien Rowan is a 65 year old male who is seen in consultation for evaluation of parkinsonism. He is seen with cousin. HISTORY OF PRESENT ILLNESS: The patient was diagnosed with MS in 2003. He has had optic neuritis. The gait has worsened. He has used Copaxone [id number]; CellCept July 2007 - October 2009; Gilenya (SEP 2010-AUG 2012); Tecfidera (10/2012-06/2018, stopped due to relapse with MRI activity). His current treatment is Ocrevus which he started on 07/21/2018. The gait is impaired by findings consistent with ynhteerd-uk-ohyd (FOG). There is no reported weakness. He has more trouble in carpet. There is no rigidity or bradykinesia noted. He is angry a lot since he lives with his 95-year-old mother. The cousin reports that he has a great deal of trouble with carpeted floor - her demonstration is most consistent with profound vqhvsuue-vx-uoxc (FOG). Parkinson's Medications Schedule: awaken (7-8A) 9A 2P 7P 12A (bedtime) Sinemet 25/100 0 2 2 2 2 Previous Parkinson's Medications: None In addition, the following Parkinson-associated features were evaluated: Daily activities Difficulties with eating: No Difficulties in dressing: No Difficulties with hygiene activities: No Difficulties with handwriting: Yes: +micrographia Difficulties with doing hobbies and other activities: Yes: cannot do hunting or fishing Difficulties turning in bed: No Difficulties getting out of bed, car or chair: No Tremors/Gait/Balance Shaking or tremors: No Walking and balance problems: Yes: See History of Present Illness (HPI) Gait freezing: No Autonomic/Pain Lightheadeness on standing: No Urinary problems: No Constipation problems: Yes: uses Fleet enema Speech/Swallowing Speech problems: No Drooling: No Chewing and swallowing problems: No Sleep/Fatigue Problems sleeping at night: No Daytime sleepiness: No Fatigue: No REM sleep behavior disorder: No Mood/Behavior/Cognition Cognitive impairment: No Hallucinations and delusions: No Apathy: No Depression: No Anxiety: Yes - on treatment Review of Systems Respiratory: Negative for difficulty breathing and shortness of breath. Cardiovascular: Negative for chest pain. Gastrointestinal: Negative for abdominal pain. All other systems reviewed and are negative. ALLERGIES No Known Allergies Current Outpatient Medications Medication Sig - carbidopa-levodopa (SINEMET 25-100) 25-100 mg per tablet Take 2 tablets by mouth four times daily - baclofen (LIORESAL) 20 mg tablet TAKE ONE TABLET BY MOUTH 3 TIMES DAILY NEEDED - amLODIPine (NORVASC) 5 mg tablet Take 1 tablet by mouth once daily. - modafinil (PROVIGIL) 100 mg tablet TAKE ONE TABLET BY MOUTH ONCE DAILY - Walker (ULTRA-LIGHT ROLLATOR) misc Nitro Light Weight Rollator with seat - solifenacin (VESICARE) 10 mg tablet Take 10 mg by mouth once daily. - tamsulosin ER (FLOMAX) 0.4 mg cap Take 0.4 mg by mouth. - clonazePAM (KLONOPIN) 0.5 mg tablet Take 0.5 mg by mouth as needed. - CARVEDILOL 25 mg tablet Take 25 mg by mouth twice daily with meals. - CLONIDINE 0.2 mg tablet Take 0.2 mg by mouth twice daily. - LISINOPRIL 20 mg tablet Take 20 mg by mouth twice daily. - aspirin, enteric coated (ECOTRIN) 325 mg ORAL EC tablet Take 1 tablet by mouth once daily. No current facility-administered medications for this visit. PAST MEDICAL AND SURGICAL HISTORY: has a past medical history of Hypertension, Multiple sclerosis (HCC), and Smoking. He also has no past medical history of Atrial fibrillation (HCC), Cancer (HCC), Chronic obstructive pulmonary disease (COPD) (HCC), Chronic renal insufficiency, Congestive heart failure (HCC), Coronary artery disease, Depression, Diabetes (HCC), Epilepsy (HCC), Obstructive sleep apnea, Steroid long-term use, Stroke (HCC), or Substance abuse (HCC). has a past surgical history that includes tonsillectomy hx; hemorrhoid - banding; carpal tunnel; and removal of kidney stone (2009). In addition, the patient denies a history of exposure to dopamine receptor blocking agents, denies history of encephalitis/meningitis and denies significant exposure to insecticides/ pesticides/ heavy metals/ carbon monoxide Social History Tobacco Use - Smoking status: Former Smoker Packs/day: 1.00 Years: 30.00 Pack years: 30.00 Quit date: 01/15/2018 Years since quittin.9 - Smokeless tobacco: Never Used Substance Use Topics - Alcohol use: No - Drug use: No FAMILY HISTORY: family history includes Arthritis in his mother; COPD in his father; Cancer in his father; Coronary Artery Disease in his mother; (more content not included)...[facility] [id number] NoteHNO ID: [id number] Author: Kem Sepulveda MD Service: ? Author Type: Physician Type: Progress Notes Filed: 09/19/2020 5:56 PM Note Text: He comes to the office today because of parkinsonism. Even with the increased dose of carbidopa-levodopa there has been no clinical improvement. Today on examination he is awake, alert, pleasant, cooperative and coherent. The rapid alternating movements of the fingers are mildly reduced bilaterally this a bit more so on the right. There is no significant postural tremor of the outstretched hands and fingers. He stands from the chair with at least mild to moderate difficulty. His posture is mild to moderately flexed with decreased arm swing. Again his stance is at least mild to moderately wide-based and the gait very prominently shuffling. The turns are very segmental. Cranial Nerves: II?visual lechuga full III IV ?extraocular movements normal save for some cogwheeling of the smooth pursuit movements and perhaps dysmetria VII?muscles of facial expression normal in power bilaterally Motor System: Strength in the deltoids, biceps, triceps, wrist extensors, finger extensors, interossei, iliopsoas, quadriceps, hamstrings and anterior tibialis is well-preserved save for least mild weakness in the anterior tibialis bilaterally. The tendon reflexes are symmetric. Other Observations: His facial expression is mildly hypomimic and there is a Myerson sign. Mild cogwheel rigidity is noted in the upper extremities and the neck. In summary, he has parkinsonian features but has not improved with increasing doses of carbidopa-levodopa. After further consideration we will refer him to one of our movement disorder specialists and instructions were provided for increasing the dose of carbidopa?levodopa. A follow-up visit has been scheduled.[facility] [id number] NoteHNO ID: [id number] Author: Emerita Kraft Service: ? Author Type: ? Type: Progress Notes Filed: 09/19/2020 5:56 PM Note Text: Cousin Rosaline with pt. Pt. denies any distress. No distress noted. Pt. color pink.[facility] [id number] NoteHNO ID: [id number] Author: Ayaka Guerra APRN.[facility] Service: ? Author Type: Nurse Practitioner Type: Progress Notes Filed: 09/19/2020 2:39 PM Note Text: [facility] MULTIPLE SCLEROSIS FOLLOWUP/ESTABLISHED PATIENT VISIT PRINCIPAL NEUROLOGIC DIAGNOSIS: Multiple Sclerosis ?? DISEASE HISTORY Onset: 2003 Diagnosis of MS: 2004 Disease course at onset: relapsing-remitting Current disease course: relapsing-remitting Prior disease therapy: ?- Copaxone [id number] ?- CellCept July 2007 - October 2009 ?- Gilenya (SEP 2010-AUG 2012) ?- Tecfidera (10/2012-06/2018, stopped due to relapse with MRI activity) Current disease therapy:?Ocrevus. Started: 07/21/2018 ?? Last MRI brain:?03/14/2020(stable) Last MRI cervical spine: NA Last MRI thoracic spine:?02/10/2019?(stable) Last MRI lumbar spine: 05/11/2018 (DDD) ? CHIEF COMPLAINT:?Follow-up on MS disease modifying therapy ? INTERVAL HISTORY: Usual treating team:?Bradley/ Charlie The patient is accompanied by his friend. The patient was last seen 03/14/2020, currently taking Ocrevus. Since the patient's last visit the patient reports overall feeling stable. Issues with current MS therapy: Tolerating medication without side effects. Feels like he is having a urinary tract infection Does receive botox injections to his bladder, last flomax BID is hlepful Over due for Ocrevus, zia Having episodes of vomiting without warning. GI upset when laying flat Vitamin D 5,000 international unit(s) Daily SUBJECTIVE AND REVIEW OF SYSTEMS: Neuro-QoL Functions (higher=better functioning) Office Visit from 03/14/2020 in Neurology Office Visit from 06/16/2018 in Neurology Office Visit from 12/03/2016 in Neurology Upper Extremity Domain T Score 37 (Patient-Rptd) 42.4 (Patient-Rptd) 32.71 (Patient-Rptd) Lower Extremity Domain T Score 34 (Patient-Rptd) 40.67 (Patient-Rptd) 35.89 (Patient-Rptd) Cognitive Function Domain T Score 43 (Patient-Rptd) 44.81 (Patient-Rptd) 44.4 (Patient-Rptd) Positive Affect Well Being T Score ? 44.09 (Patient-Rptd) 40.27 (Patient-Rptd) Ability To Participate In Social Roles T Score 42 (Patient-Rptd) 39.9 (Patient-Rptd) 39.9 (Patient-Rptd) Satisfaction With Social Roles T Score 40 (Patient-Rptd) 43.36 (Patient-Rptd) 45.37 (Patient-Rptd) Neuro-QoL Symptoms (higher=worse symptoms) Office Visit from 03/14/2020 in Neurology Office Visit from 06/16/2018 in Neurology Office Visit from 12/03/2016 in Neurology Sleep Domain T Score 47 (Patient-Rptd) 45.2 (Patient-Rptd) 57.96 (Patient-Rptd) Fatigue Domain T Score 54 (Patient-Rptd) 50.45 (Patient-Rptd) 54.47 (Patient-Rptd) Anxiety Domain T Score 54 (Patient-Rptd) 50.02 (Patient-Rptd) 51.52 (Patient-Rptd) Depression Domain T Score 53 (Patient-Rptd) 47.97 (Patient-Rptd) 46.06 (Patient-Rptd) Stigma Domain T Score 59 (Patient-Rptd) 55.77 (Patient-Rptd) 62.73 (Patient-Rptd) Emotional Behavior Dyscontrol T Score ? 56.74 (Patient-Rptd) 56.2 (Patient-Rptd) *NeuroQoL is a multi-domain patient-reported quality of life questionnaire. PHQ-9 Office Visit from 06/19/2020 in Neurology Office Visit from 03/14/2020 in Neurology PHQ-9 Score 4 9 *PHQ-9 is a questionnaire for depressive symptoms, with scores 0-4 indicating none, 5-9 mild, 10-14 moderate, 15-19 moderately severe, and 20-27 severe symptoms. PROMIS-10 Office Visit from 06/19/2020 in Neurology Office Visit from 03/14/2020 in Neurology Global Physical Health T Score 42.3 34.9 Global Mental Health T Score 43.5 36.3 0-10 Standard Pain Scale 3 3 *PROMIS-10 is a patient-reported quality of life measure, typically reported as physical and mental domains. Here scores are expressed as percentiles, where the lowest possible score is one, the highest possible score is 99, and 50 is average. Mood: Good/bright Bladder: frequency, hesitancy Bowel: Normal Fatigue: None Sleep: No problem/well Memory/Concentration: Normal PAST HISTORY was reviewed and updated: PAST MEDICAL HISTORY Diagnosis Date - Hypertension - Multiple sclerosis (HCC) 2003 - Smoking PAST SURGICAL HISTORY Procedure Laterality Date - CARPAL TUNNEL right wrist 25 years ago - HEMORRHOID: RUBBERBAND, SINGLE/MULTIPLE 30 years ago - REMOVAL OF KIDNEY STONE 2009 stent and removal - TONSILLECTOMY HX 50 years ago MEDICATIONS and ALLERGIES were reviewed and updated. SOCIAL HISTORY was reviewed and updated: Social History Tobacco Use Smoking status: Former Smoker Packs/day: 1.00 Years: 30.00 Pack years: 30 Quit date: 01/15/2018 Years since quittin.6 Smokeless tobacco: Never Used Living situation: Living at home with assistance Employment Status / Disability: Retired OBJECTIVE: VITALS AND WELLNESS: There were no vitals taken for this visit. MSPT Performance Tests 10/20/2018 06/16/2018 Processing Speed Total Number Correct - 28 Low-contrast letter acuity test-2.5 percent opacity - 27 (more content not included)...[facility] [id number] NoteHNO ID: [id number] Author: Kem Sepulveda MD Service: ? Author Type: Physician Type: Progress Notes Filed: 09/19/2020 5:59 PM Note Text: He is seen in follow-up today because of suspect parkinsonism. There has been no response to the carbidopa?levodopa even with increasing the dose to one 25-100 mg tablet 4 times daily. What he finds the most troublesome is an inability to lift his right leg, particularly early in the morning. Today on examination he is awake, alert, pleasant, cooperative and coherent. He can stand from his chair with little in the way of difficulty. His posture is mild to moderately flexed with decreased arm swing. Stance is at least mildly wide-based and the gait prominently shuffling. The rapid alternating movements of the fingers are well preserved on the right but at least moderately impaired on the left. There is a mild, low to medium amplitude, medium to fast irregular frequency postural tremor of the hands and fingers. Cranial Nerves: II?visual lechuga full save for a suspect defect referable to the left superior nasal retina III IV ?extraocular movements full but a bit disconjugate with some cogwheeling of the smooth pursuit movements VII?muscles of facial expression normal in power bilaterally Motor System: The tendon reflexes are symmetric. Other Observations: His facial expression is at least mildly hypomimic and there is a Myerson sign. Speech is at least mild to moderately hypophonic. Mild cogwheel rigidity is noted in the upper extremities and the neck. In summary, there has been no significant lessening of his parkinsonian symptoms. After further consideration instructions for increasing the dose of carbidopa- levodopa were provided and they are to contact us to advise as to his response. A follow-up visit has been scheduled.[facility] [id number] NoteHNO ID: [id number] Author: Kem Sepulveda MD Service: ? Author Type: Physician Type: Progress Notes Filed: 06/19/2020 2:40 PM Note Text: This is actually an office follow-up visit for this 64-year-old right-handed white male who has a past medical history significant for hypertension and Multiple Sclerosis the latter diagnosed in 1999. He estimates that he probably had symptoms for several years. Currently he is being treated with Ocrevus this for the last 2 years. He believes that this is been somewhat helpful. Concern has been raised with regard to the possibility of parkinsonism inasmuch as he has been noticing increasing difficulties with gait especially over the last 6 months at least in part related to difficulty moving the right leg. He has noted increasing difficulty getting into and out of automobiles and his posture has become quite flexed. Gait is really quite shuffling and he has a great deal of difficulty turning. There has never been any tremor. He reports that his handwriting has become smaller and illegible. They deny any change in his facial expression or speech and there has been no sialorrhea. Past Medical History: His past medical history is as previously delineated. Family History: There is no history in his family of inherited problems with coordination, muscular dystrophy, peripheral nerve disease, parkinsonism, dementia, recurrent troublesome headaches or seizure disorder. A paternal aunt had Multiple Sclerosis. Psychosocial History: He is and twice. He has no children. He quit smoking 2 years ago, was smoking about 1-1/2 pack of cigarettes daily and had smoked for about 20 years. This has included pipe and cigar smoking. He is a nondrinker. 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 Review of Systems: There is a remote history of headaches. There is no history of syncope or seizures. He denies any weakness, wasting, unusual cramping or twitching of his muscles, numbness or tingling aside from what we have already discussed or implied. There are no visual difficulties aside from wearing corrective lenses and he denies any aberration of his sense of hearing, taste or smell. Speech, swallowing, bladder and bowel function are unimpaired aside from a history of what sounds like urinary incontinence. There is no history of head injury sufficient to cause loss of consciousness, fracture of the spinal column, meningitis or encephalitis. Neurologic examination on March 22, 2020 revealed an awake, alert, pleasant, cooperative and coherent gentleman. There was a mild to moderate postural tremor this of low to medium amplitude and medium to fast irregular frequency of the outstretched hands/fingers this a bit more prominent on the right. His stance was at least mild to moderately wide-based and the posture quite flexed with decreased arm swing when ambulating. Gait was markedly shuffling with very prominent segmental turns. The rapid alternating movements in the tongue fingers and toes were performed well save for a mild reduction in the fingers and right toes with a moderate reduction in the left toes. They were also mildly reduced in the tongue. Rcbcke-ni-juix testing was performed without difficulty. Cranial Nerves: II?visual lechuga full III IV ?extraocular movements full save for some cogwheeling of the smooth pursuit movements. VII?muscles of facial expression normal in power bilaterally XII?tongue midline Motor System: Strength in the deltoids, biceps, triceps, wrist extensors, finger extensors, interossei, iliopsoas, quadriceps, hamstrings, anterior tibialis and toe extensors was actually well preserved. There was no significant tendon reflex asymmetry and no definite Babinski response. Sensory System: Joint position and vibration sensation were intact save for moderate decrement of vibration sensation in the left great toe. Other Observations: His facial expression was at least mildly hypomimic and there was a Myerson sign. I suspect mild cogwheel rigidity in both upper extremities and the neck with questionable minimal cogwheel rigidity in the lower extremities. In summary, the history and examination suggest that he has elements of parkinsonism. Whether he has idiopathic parkinsonism or Parkinson's disease is difficult to establish with certainty. One way of approaching this is to treat him presumptively for Parkinson's disease and observe for any improvement. They are agreeable to try this and a prescription for carbidopa?levodopa was provided together with the appropriate instructions. The possibility of adverse effects was discussed and should they encounter any difficulties we are to be contacted. A follow-up visit has been scheduled but they are to keep us advised as to his status.[facility] [id number] NoteHNO ID: [id number] Author: Estefanía Rose Service: ? Author Type: Physician [employer] Type: Progress Notes Filed: 03/14/2020 5:07 PM Note Text: [facility] MULTIPLE SCLEROS[facility] FOLLOWUP/ESTABLISHED PATIENT VISIT PRINCIPAL NEUROLOGIC DIAGNOSIS: Multiple Sclerosis ?? DISEASE HISTORY Onset: 2003 Diagnosis of MS: 2003 Disease course at onset: relapsing-remitting Current disease course: relapsing-remitting Prior disease therapy: ?- Copaxone [id number] ?- CellCept July 2007 - October 2009 ?- Gilenya (SEP 2010-AUG 2012) ?- Tecfidera (10/2012-06/2018, stopped due to relapse with MRI activity) Current disease therapy:?Ocrevus. Started: 07/21/2018 ?? Last MRI brain: 03/14/2020(stable) Last MRI cervical spine: NA Last MRI thoracic spine: 02/10/2019 (stable) Last MRI lumbar spine: 05/11/2018 (DDD) ? CHIEF COMPLAINT:?Follow-up on MS disease modifying therapy ? INTERVAL HISTORY: Usual treating team:?Bradley/Allie ? Patient Is accompanied by . Last seen 06/09/2019. Currently taking Ocrevus. Last infusion was 02/02/2020. Tolerating well. Right leg dragging, getting worse with increased difficulty walking. Has a difficult time getting out of bed in the morning. Refusing to use wheelchair. Patient reports falling asleep at kitchen table after meals. Patient reports no recent falls. Quit smoking 1 year ago. Smoked for 20 years prior. Patient reports that he has not seen physical therapy but would like to continue. Swelling in legs improved from last visit. BP stable. Gets botox injections to bladder REVIEW OF SYSTEMS: Mood: flat affect Spasticity:None Bladder: See HPI Bowel: Normal Fatigue: Moderate Sleep: Normal Memory/Concentration: Normal PAST HISTORY was reviewed and updated: PAST MEDICAL HISTORY Diagnosis Date - Hypertension - Multiple sclerosis (HCC) 2003 - Smoking PAST SURGICAL HISTORY Procedure Laterality Date - CARPAL TUNNEL right wrist 25 years ago - HEMORRHOID: RUBBERBAND, SINGLE/MULTIPLE 30 years ago - REMOVAL OF KIDNEY STONE 2010 stent and removal - TONSILLECTOMY HX 50 years ago MEDICATIONS and ALLERGIES were reviewed and updated. SOCIAL HISTORY was reviewed and updated: Current living situation: At home with mother Current vocational status: Disabled EXAM: General Appearance: well appearing, in no acute distress Mental status evaluation during the interview and examination showed normal level of consciousness, orientation, language, memory, praxis, and higher intellectual function Affect: Flat Speech: normal Muscle strength (#/5): Right Left Upper Extremity: Deltoids 5 5 Biceps 5 5 Triceps 5 5 Acupuncture Physician 5 5 Dorsal interossei 5 5 Lower extremity: Iliopsoas 5 5 Quadriceps 5 5 Hamstrings 5 5 Tibialis anterior 5 5 Gastrocnemius 5 5 Coordination: Upper AND lower extremity dexterity and rapid movements: Impaired bilaterally Standing balance: Impaired Standard gait: Short, shuffling strides. Multi-step turn. Reduced arm swing Assistive device: cane RESULTS: Monitoring labs: None to review Discrete MRI Results Component Value Date Brain New T2 Lesions None 03/14/2020 Brain Enhancing Lesions None 03/14/2020 ASSESSMENT: Tien Rowan is a 64 year old male with MS, on Ocrevus with worsening of gait consistent with parkinsonism possibly related to MS. Would like to get opinion from movement clinic. Recommend outpatient PT with therapist with neurologic training. Encouraged use for rollator consistently for fall prevention. PLAN: 1. Continue Ocrevus 2. Consult to movement clinic 3. PT 4. Return in 6 months or sooner if needed I spent a total of 60 minutes on the date of the service which included preparing to see the patient, ryak-lv-kwke patient care, completing clinical documentation, obtaining and/or reviewing separately obtained history, performing a medically appropriate examination, counseling and educating the patient/family/caregiver, ordering medications, tests, or procedures, communicating with other HCPs (not separately reported), independently interpreting results (not separately reported), communicating results to the patient/family/caregiver and care coordination (not separately reported). [facility] Diagnosis Primary parkinsonism (HCC) Paralysis agitans documented in this encounter [facility] [place] note* Diagnosis Primary parkinsonism (HCC) Paralysis agitans documented in this encounter [facility] [place] note* Diagnosis Primary parkinsonism (HCC) Paralysis agitans documented in this encounter [facility] [place] note* Diagnosis Primary parkinsonism (HCC) Paralysis agitans documented in this encounter [facility] [place] note* Diagnosis Primary parkinsonism (HCC)- Primary Paralysis agitans documented in this encounter [facility] [place] note* Diagnosis Parkinsonism, unspecified Parkinsonism type (HCC)- Primary documented in this encounter [facility] [place] noteNo [employer] Other Evaluation noteNo assessment information available [facility] Work Phone: History general Narrative - Reported* Type Description Date Medical History History of colon polyps Medical History Iron deficiency anemia, unspecif ied Medical History Encounter for screening for golden gnant neoplasm of colon Medical History Sigmoid diverticulosis Medical History Parkinson disease Medical History Multiple sclerosis Medical History Chronic venous insufficiency Medical History TEOFILO (generalized anxiety disorde r) Medical History Primary hypertension Medical History Neurogenic bladder Medical History Benign prostatic hyp erplasia with lower urinary tract symptoms Medical History Hypokalemia Medical History Scrotal abscess Medical History OAB (overactive bladder) Surgical History COLONOSCOPY 2015 Surgical History CYSTOSCOPY 2017 Hospitalization History SEE SURGICAL HX Dr [facility] Other Summary Purpose Family History No Family History Records FoundNo Family History Records FoundNo Family History Records FoundNo Family History Records FoundNo Family History Records FoundNo Family History Records FoundNo Family History Records Found Advance Directives Advance Directive Response Recorded Date/ Time Advance Directives No October 14, 2020 3:07pm Reason for Referral Specialty Diagnoses / Procedures Referred By Gerald matias Referred To Contact Neurology Diagnoses Primary parkinsonism (HCC) Procedures CONSULT TO NEUROLOGY OFFICE/OUTPATIENT [facility] 60-74 MINUTES Ayaka Guerra, MARINA.[employer] [address] [place] [address] Referral ID Status Reason Start Date Expiration Date Visits Requested Visits Authorized [id number] Authorized PCP Requested Referral 04/17/2022 04/17/2023 1 1 Chief Complaint and Reason for Visit Chief Complaint Amb Documentation infected tooth Additional Source Comments (unrecognized sect ion and content) No Status Records FoundNo Status Records FoundNo Status Records FoundNo Status Records FoundNo Status Records FoundNo Status Records FoundNo Status Records Found INFORMATION SOURCE (unrecogn ized section and content) DATE CREATED AUTHOR 10/21/2018 [facility] DATE CREATED AUTHOR AUTHOR'S ORGANIZ ATION 12/15/2020 [facility] DATE CREATED AUTHOR AUTHOR'S ORGANIZ ATION 03/19/2021 [place] DATE CREATED AUTHOR AUTHOR'S ORGANIZ ATION 06/03/[address] [facility] DATE CREATED AUTHOR AUTHOR'S ORGANIZ ATION 01/07/2023 [facility] DATE CREATED AUTHOR AUTHOR'S ORGANIZ ATION 03/04/2023 [facility] DATE CREATED AUTHOR AUTHOR'S ORGANIZ ATION 03/30/2023 [facility] Source Comments (unrecognize d section and content) In the event this informatio n is protected by the Federal Confidentiality of Alcohol and Drug Abuse Patient Records regulations: The Federal rules restrict any use of the information to criminally investigate or prosecute any alcohol or drug abuse patient.[facility] the event this information is protected by the Federal Confidentiality of Alcohol and Drug Abuse Patient Records regulations: The Federal rules restrict any use of the information to criminally investigate or prosecute any alcohol or drug abuse patient.[facility] Center[facility] the event this information is protected by the Federal Confidentiality of Alcohol and Drug Abuse Patient Records regulations: The Federal rules restrict any use of the information to criminally investigate or prosecute any alcohol or drug abuse patient.[facility] Center[facility] the event this information is protected by the Federal Confidentiality of Alcohol and Drug Abuse Patient Records regulations: The Federal rules restrict any use of the information to criminally investigate or prosecute any alcohol or drug abuse patient.[facility] Center[facility] the event this information is protected by the Federal Confidentiality of Alcohol and Drug Abuse Patient Records regulations: The Federal rules restrict any use of the information to criminally investigate or prosecute any alcohol or drug abuse patient.[facility] the event this information is protected by the Federal Confidentiality of Alcohol and Drug Abuse Patient Records regulations: The Federal rules restrict any use of the information to criminally investigate or prosecute any alcohol or drug abuse patient.[facility] CenterIn the event this information is protected by the Federal Confidentiality of Alcohol and Drug Abuse Patient Records regulations: The Federal rules restrict any use of the information to criminally investigate or prosecute any alcohol or drug abuse patient.[facility] CenterIn the event this information is protected by the Federal Confidentiality of Alcohol and Drug Abuse Patient Records regulations: The Federal rules restrict any use of the information to criminally investigate or prosecute any alcohol or drug abuse patient.[facility] the event this information is protected by the Federal Confidentiality of Alcohol and Drug Abuse Patient Records regulations: The Federal rules restrict any use of the information to criminally investigate or prosecute any alcohol or drug abuse patient.[facility] Reason for Visit (unrecogniz ed section and content) Reason Comments Refill Request Reason Comments Patient Question Reason Onset Date Comments Refill Request 01/28/2022 Reason Onset Date Comments Refill Request 03/07/2022 Reason Comments Appointment LVM for pt with date and time of rescheduled appt advised pt to call and cancel/reschedule if appt does not work for them any PSS can assist Reason Comments Patient Question Reason Comments Parkinsonism Care Teams (unrecognized sec tion and content) Night Stocker Relationship Specialty Start Date End Date All Redmond DO PCP - General Internal Medicine 02/26/10 Night Stocker Relationship Specialty Start Date End Date All Redmond DO PCP - General Internal Medicine 02/26/10 Night Stocker Relationship Specialty Start Date End Date All Redmond DO PCP - General Internal Medicine 02/26/10 Night Stocker Relationship Specialty Start Date End Date All Redmond DO PCP - General Internal Medicine 02/26/10 Night Stocker Relationship Specialty Start Date End Date All Redmond DO PCP - General Internal Medicine 02/26/10 Night Stocker Relationship Specialty Start Date End Date All Redmond DO PCP - General Internal Medicine 02/26/10 Night Stocker Relationship Specialty Start Date End Date All Redmond PCP - General Internal Medicine 02/26/10 Team Status: Active Member Role Status Dates All Redmond DO Primary Care Provider Active Team Status: Active Member Role Status Dates All Redmond DO Primary Care Provider Active Start: April 11, 2023 JOSE M Sellers Attending Provider Active St art: April 11, 2023 Team Status: Inactive Member Role Status Dates All Redmond DO Primary Care Provider Active Start: May 15, 2023 End: May 15, 2023 Kiley Lynn APRN SPECIAL EVENT ASSISTANT-C Attending Provider Act soledad Start: May 15, 2023 End: May 15, 2023 Goals (unrecognized section and content) Goals may be documented in a n alternate section FOR RECORDS PERTAINING TO PATIENTS WHO ARE OR HAVE BEEN ENROLLED IN A CHEMICAL DEPENDENCY/SUBSTANCEABUSE PROGRAM, SOME INFORMATION MAY BE OMITTED. This clinical summary was aggregated from multiple sources. Caution should be exercised in using it in the provision of clinical care. This summary normalizes information from multiple sources, and as a consequence, information in this document may materially change the coding, format and clinical context of patient data. In addition, data may be omitted in some cases. CLINICAL DECISIONS SHOULD BE BASED ON THE PRIMARY CLINICAL RECORDS. [employer] provides no warranty or guarantee of the accuracy or completeness of information in this document.
--- NOTE | 2023-05-25 08:23 | ECG_ITS ---
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
--- NOTE | 2023-05-25 08:24 | XR_ITS ---
The [address] [address] Patient Name: BRANDY ROWAN MRN: [id number] date: 1955 Sex: M Assigned Patient Location: ER Current Patient Location: ED.MAIN Accession/Order Number: [id number] Exam Date: 05/25/2023 08:30 Report Date: 05/25/2023 09:13 At the request of: JUAN CARLOS MENDEZ Procedure: XR chest 1V EXAM: XR chest 1V HISTORY: ams COMPARISON: 11/01/2022. TECHNIQUE: AP portable upright chest x-ray. FINDINGS: Diffuse vascular prominence with congestion and lower lung field edema. Moderate size right pleural effusion. No definite left effusion. Heart size prominent but similar to previous. XR/XR chest 1V IMPRESSION: New abnormalities most consistent with CHF with moderate size right pleural effusion. Follow-up recommended. Electronically authenticated by: STEVEN MELO Date: 05/25/2023 09:13
--- NOTE | 2023-05-25 08:31 | XR_ITS ---
The [address] [address] Patient Name: BRANDY ROWAN MRN: [id number] date: 1955 Sex: M Assigned Patient Location: ER Current Patient Location: ER Accession/Order Number: [id number] Exam Date: 05/25/2023 08:30 Report Date: 05/25/2023 09:15 At the request of: JUAN CARLOS MENDEZ Procedure: XR shoulder RT min 2V EXAM: XR shoulder RT min 2V HISTORY: pain and fall COMPARISON: Shoulder included on chest x-ray 11/01/2022. TECHNIQUE: AP internal rotation, external rotation, Y-view right shoulder. FINDINGS: No fracture or dislocation. Mild spurring around the AC joint. Mild sclerosis superolateral humeral head. Articular surface humerus is smooth. No soft tissue calcification. Abnormal findings right chest as seen on chest x-ray. No rib abnormality or fracture seen. XR/XR shoulder RT min 2V IMPRESSION: Negative for fracture or dislocation. Mild degenerative changes. Abnormal findings right chest as seen on chest x-ray. Electronically authenticated by: STEVEN MELO Date: 05/25/2023 09:15
--- NOTE | 2023-05-25 08:32 | CT_ITS ---
The [address] [address] Patient Name: BRANDY ROWAN MRN: [id number] date: 1955 Sex: M Assigned Patient Location: ER Current Patient Location: ER Accession/Order Number: [id number] Exam Date: 05/25/2023 09:08 Report Date: 05/25/2023 09:41 At the request of: JUAN CARLOS MENDEZ Procedure: CT head/brain wo con EXAM: CT head/brain wo con HISTORY: ams COMPARISON: CT head 11/01/2022. TECHNIQUE: Axial noncontrast CT imaging of the head was performed with coronal and sagittal reformats. This CT exam was performed using one or more of the following dose reduction techniques: Automated exposure control, adjustment of the MA and/or kV according to patient size, or use of iterative reconstruction technique. FINDINGS: Calvarium/skull base: No evidence of acute fracture or destructive lesion. Mastoids and middle ears demonstrate no substantial mucosal disease. Paranasal sinuses: No air fluid levels. Mild mucosal thickening of the right maxillary sinus. Brain: Focal hyperdensity involving the cortical subcortical margin of the right anterior middle frontal gyrus measuring 8 mm of undetermined significance (series 9 image 39 and series 7 image 14). There is no surrounding edema or local mass effect. No acute large vascular territory infarct. Interval age-indeterminate infarcts involving the right cerebellum new from 11/01/2022. Prominent supratentorial white matter hypoattenuation with mild parenchymal volume loss. No mass lesion or mass effect. No hydrocephalus. CT/CT head/brain wo con IMPRESSION: 1. Indeterminate focal parenchymal mild hyperdensity involving the cortical and subcortical margin along the right middle frontal gyrus anteriorly without surrounding mass effect. This may relate to a small hyperdense mass versus small area of hemorrhage. Recommend MR brain with and without contrast for further evaluation. 2. Age-indeterminate areas of infarct involving the right cerebellum new from 11/01/2022 without substantial mass effect. This can also be better evaluated on MR brain. Notification of Results Provider/Agent notified: Dr. Juan Carlos Mendez Time/Date notified: 05/25/2023 7:38 AM MDT Notifying Staff: Dr. Tillman Electronically authenticated by: LACY TILLMAN Date: 05/25/2023 09:41
[2023-05-25 08:53] LABS: Hematocrit 38.6 % (42.0-54.0); Hemoglobin 12.4 g/dL (14.0-18.0); Mean Corpuscular HGB Conc 32.1 g/dL (29.9-35.2); Mean Corpuscular Hemoglobin 28.4 pg (25.9-34.0); Mean Corpuscular Volume 88.5 fL (80.0-94.0); Mean Platelet Volume 9.9 fL (9.5-13.5); Platelet Count 217 10^3/uL (150-450); Red Blood Count 4.36 10^6/uL (4.70-6.10); Red Cell Distribution Width 14.6 % (11.0-15.0); White Blood Count 23.7 10^3/uL (4.0-11.0)
[2023-05-25 09:07] LABS: INR 1.23; Prothrombin Time 12.9 sec (9.0-11.6)
[2023-05-25 09:09] LABS: Alanine Aminotransferase 8 U/L (16-63); Albumin Globulin Ratio 0.6; Albumin Level 2.4 g/dL (3.4-5.0); Alkaline Phosphatase 226 U/L (46-116); Anion Gap 16.3; Aspartate Amino Transferase 38 U/L (15-37); BUN Creatinine Ratio 25.9; Bilirubin Total 0.5 mg/dL (0.2-1.0); Calcium 9.2 mg/dL (8.5-10.1); Carbon Dioxide 26.8 mmol/L (21.0-32.0); Chloride 106 mmol/L (98-107); Creatine Kinase 91 U/L (39-308); Estimated GFR (African America >60 (>=60); Estimated GFR (Non-African Ame >60 (>=60); Glucose 105 mg/dL (74-106); Lactate/Lactic Acid 2.1 mmol/L (0.4-2.0); Magnesium 2.1 mg/dL (1.8-2.4); Potassium 3.1 mmol/L (3.5-5.1); Sodium 146 mmol/L (136-145); Total Protein 6.4 g/dL (6.4-8.2)
[2023-05-25 09:12] LABS: Troponin I High Sensitivity 5185.4 pg/mL (4.0-76.1)
[2023-05-25 09:27] LABS: Band Neutrophils Absolute 1.7 10^3/uL (0.0-0.3); Lymphocytes Absolute Manual 0.94 10^3/uL (1.20-3.80); Monocytes Absolute Manual 1.65 10^3/uL (0.30-0.80); Segmented Neut Absolute Manual 19.43 10^3/uL (1.4-6.5)
[2023-05-25] MEDS: LABETALOL HCL 20 MG/4 ML SYRINGE 10 MG IVP (10:59)
[2023-05-25 11:12] LABS: Bilirubin Urine NEGATIVE (NEGATIVE); Blood Urine TRACE-I (NEGATIVE); Clarity Urine CLEAR (CLEAR); Color Urine YELLOW (YELLOW); Glucose Urine UA NEGATIVE (NEGATIVE); Ketones Urine 15 mg/dL (NEGATIVE); Leukocyte Esterase Urine NEGATIVE (NEGATIVE); Nitrite Urine NEGATIVE (NEGATIVE); Protein Urine TRACE mg/dL (NEG/TRACE); Urobilinogen Urine 0.2 EU/dL (0.2-1.0)
[2023-05-25 11:14] LABS: Urine Microscopic Indicated YES
[2023-05-25 11:20] LABS: Bacteria Urine NONE SEEN #/HPF (NONE SEEN); Cast Seen? NONE SEEN #/LPF (NONE SEEN); Crystals Seen? None Seen #/HPF (None Seen); Mucus Urine NONE SEEN (NONE SEEN); RBC Urine 0-2 #/HPF (0-2); Squamous Epithelial Cell Urine NONE SEEN #/LPF (NONE/RARE); WBC Urine NONE SEEN #/HPF (NONE SEEN)
[2023-05-25 12:18] LABS: Lactate/Lactic Acid 2.7 mmol/L (0.4-2.0)
[2023-05-25] MEDS: PIPERACILLIN SODIUM/TAZOBACTAM 3.375 GM in 0.9 % SODIUM CHLORIDE 50 ML IV (12:22)
[2023-05-25] MEDS: 0.9 % SODIUM CHLORIDE 1,000 ML 1000 ML IV ×2 (13:23→14:26)
--- NOTE | 2023-05-25 14:08 | ED_ITS ---
HPI HPI - General Adult General Chief complaint: Fall Stated complaint: FALL Time Seen by Provider: 05/25/23 08:11 Source: patient Mode of arrival: ambulance Limitations: altered mental status History of Present Illness HPI narrative: The patient was brought to us by the EMS after he was found on the floor of his bedroom by his mother the patient is a 68-year-old male with a history of MS as well as hypertension and Parkinson who has been having generalized weakness and cough for the last few days the patient himself is not able to provide any history just complaining of right shoulder pain. According to the mother the patient has been generally weak and not taking his medication for the last few weeks.. The patient also has been having some confusion. As per the patient he fell down to hit his right shoulder he did not hit his head. Related Data Home Medications ?Medication ?Instructions ?Recorded ?Confirmed amlodipine 5 mg tablet 5 mg PO BID 11/01/22 11/01/22 baclofen 20 mg tablet 20 mg PO Q8H 11/01/22 11/01/22 carbidopa 25 mg-levodopa 100 mg 2 tab PO .4 times a day 11/01/22 11/01/22 tablet clonazepam 0.5 mg tablet 0.5 mg PO Q12H 11/01/22 11/01/22 clonidine HCl 0.3 mg tablet 0.3 mg PO Q12H 11/01/22 11/01/22 lisinopril 20 mg tablet 20 mg PO DAILY 11/01/22 11/01/22 tamsulosin 0.4 mg capsule 0.4 mg PO BID 11/01/22 11/01/22 Previous Rx's ?Medication ?Instructions ?Recorded levofloxacin 500 mg tablet 500 mg PO DAILY 7 days #7 tabs 11/01/22 ibuprofen 800 mg tablet 800 mg PO Q8H PRN pain #20 tabs 05/08/23 Allergies Allergy/AdvReac Type Severity Reaction Status Date / Time No Known Drug Allergies Allergy Verified 11/01/22 07:14 Opioid HPI Opioid Management Most Recent Opioid Data: Last Pain Scale 5 05/25/23 08:26 Review of Systems ROS Status of ROS 10 or more systems reviewed and unremark able except as noted in history and below PFSH PFSH Social History Smoking status: Former smoker Exam Narrative Exam Narrative: Nurses notes and vital signs reviewed and patient is not hypoxic. General: Well-appearing and in no apparent distress. Skin: Warm, dry, no pallor noted. No rash. Head: Normocephalic, atraumatic. Neck: Supple, non-tender. Eye: Pupils are equal, round and EOMI. No scleral icterus. Ears, Nose, Mouth, and Throat: TM are clear, no nasal mucosal hypertrophy. Oral mucosa is moist, no posterior oropharynx erythema, uvula is mid-line Cardiovascular: Regular Rate and Rhythm without murmur, gallop or rub. Respiratory: No accessory muscle use or respiratory distress. Lungs are clear to auscultation, no wheezing, rales or rhonchi Chest Wall: no tenderness Back: No midline thoracic or lumbar vertebral tenderness. No CVA tenderness Musculoskeletal: normal ROM, no calf or popliteal tenderness, no lower extremity edema/swelling GI: Abdomen is soft, non-distended. Normal bowel sounds. No masses appreciated. No tenderness to palpation. No rebound, guarding, or rigidity noted. Neurological: A&O x2 no cranial nerve pathology but the patient have generalized upper and lower extremity weakness Constitutional Vital Signs, click to edit/add: Last Vital Signs Temp 98.6 F 05/25/23 08:06 Pulse 102 H 05/25/23 14:10 Resp 16 05/25/23 08:06 BP 175/79 H 05/25/23 14:00 Pulse Ox 92 L 05/25/23 11:30 O2 Del Method Room Air 05/25/23 08:06 Course Vital Signs Vital signs: Vital Signs Temperature 98.6 F 05/25/23 08:06 Pulse Rate 103 H 05/25/23 08:06 Respiratory Rate 16 05/25/23 08:06 Blood Pressure 193/98 H 05/25/23 08:06 Pulse Oximetry 97 05/25/23 08:06 Oxygen Delivery Method Room Air 05/25/23 08:06 Temperature 98.6 F 05/25/23 08:06 Pulse Rate 102 H 05/25/23 14:10 Respiratory Rate 16 05/25/23 08:06 Blood Pressure 175/79 H 05/25/23 14:00 Pulse Oximetry 92 L 05/25/23 11:30 Oxygen Delivery Method Room Air 05/25/23 08:06 Medical Decision Making [facility] Narrative Medical decision making narrative: The patient EKG upon presentation was showing sinus tachycardia heart rate 112 there was some nonspecific changes with no ST elevation or depression CT of the head of the patient shows possible ischemic changes as well as possible indeterminant hypodensity that could be hemorrhagic versus a mass The patient CBC shows leukocytosis blood culture obtained he was covered with Zosyn chest x-ray also showing possible effusion in the right side and pneumonia possibly underlying The patient initial lactic acid 2.1 he was provided with another liter of fluid Chemistry did not show any acute injury but the patient have a elevated troponin of 5000 The patient denies any chest pain at any time The patient case was discussed with the neurology and [facility] but the patient cannot be transferred there because and availability of cardiology service. Patient case also was discussed with [facility] Dr. Webster, agree that the patient is to be transferred for MRI and Dr. Mei accepted the patient in the ER The patient blood pressure right now is in the 150 systolic with trying to maintain his blood pressure between 160 and 180 right now until the hemorrhage is ruled out The patient was not started on aspirin or Plavix because of the CAT scan finding and the possibility of a bleed . Lab Data Labs: Lab Results 05/25/23 05/25/23 05/25/23 Range/Units 08:41 10:45 11:45 WBC 23.7 H (4.0-11.0) 10^3/uL RBC 4.36 L (4.70-6.10) 10^6/uL Hgb 12.4 L (14.0-18.0) g/dL Hct 38.6 L (42.0-54.0) % MCV 88.5 (80.0-94.0) fL MCH 28.4 (25.9-34.0) pg MCHC 32.1 (29.9-35.2) g/dL RDW 14.6 (11.0-15.0) % Plt Count 217 (150-450) 10^3/uL MPV 9.9 (9.5-13.5) fL Seg Neuts % (Manual) 82.0 Band Neutrophils % 7.0 H (0-5) % Lymphocytes % (Manual) 4.0 L (20.5-60.0) % Monocytes % (Manual) 7.0 (1.7-12.0) % Eosinophils % (Manual) 0.0 L (0.9-7.0) % Basophils % (Manual) 0.0 L (0.2-2.0) % Neutrophils # (Manual) 19.43 H (1.4-6.5) 10^3/uL Band Neutrophils # 1.7 H (0.0-0.3) 10^3/uL Lymphocytes # (Manual) 0.94 L (1.20-3.80) 10^3/uL Monocytes # (Manual) 1.65 H (0.30-0.80) 10^3/uL Eosinophils # (Manual) 0.00 (0.00-0.70) 10^3/uL Basophils # (Manual) 0.00 (0.00-0.10) 10^3/uL PT 12.9 H (9.0-11.6) sec INR 1.23 Sodium 146 H (136-145) mmol/L Potassium 3.1 L (3.5-5.1) mmol/L Chloride 106 (98-107) mmol/L Carbon Dioxide 26.8 (21.0-32.0) mmol/L Anion Gap 16.3 BUN 29.0 H (7.0-18.0) mg/dL Creatinine 1.12 (0.70-1.30) mg/dL Est GFR ( Amer) >60 (>=60) Est GFR (Non-Af Amer) >60 (>=60) BUN/Creatinine Ratio 25.9 Glucose 105 (74-106) mg/dL Lactate 2.1 H 2.7 H* (0.4-2.0) mmol/L Calcium 9.2 (8.5-10.1) mg/dL Magnesium 2.1 (1.8-2.4) mg/dL Total Bilirubin 0.5 (0.2-1.0) mg/dL AST 38 H (15-37) U/L ALT 8 L (16-63) U/L Alkaline Phosphatase 226 H (46-116) U/L Total Creatine Kinase 91 (39-308) U/L Troponin I High Sens 5185.4 H* (4.0-76.1) pg/mL Total Protein 6.4 (6.4-8.2) g/dL Albumin 2.4 L (3.4-5.0) g/dL Globulin 4.0 g/dL Albumin/Globulin Ratio 0.6 Urine Color Yellow (YELLOW) Urine Clarity Clear (CLEAR) Urine pH 6.0 (5.0-9.0) Ur Specific [place] 1.020 (1.005-1.025) Urine Protein Trace (NEG/TRACE) mg/dL Urine Glucose (UA) Negative (NEGATIVE) mg/dL Urine Ketones 15 A (NEGATIVE) mg/dL Urine Occult Blood Trace-i (NEGATIVE) Urine Nitrite Negative (NEGATIVE) Urine Bilirubin Negative (NEGATIVE) Urine Urobilinogen 0.2 (0.2-1.0) EU/dL Ur Leukocyte Esterase Negative (NEGATIVE) Urine RBC 0-2 (0-2) #/HPF Urine WBC None seen (NONE SEEN) #/HPF Ur Squamous Epith Cells None seen (NONE/RARE) #/LPF Urine Crystals None seen (None Seen) #/HPF Urine Bacteria None seen (NONE SEEN) #/HPF Urine Casts None seen (NONE SEEN) #/LPF Urine Mucus None seen (NONE SEEN) Discharge Plan Discharge Chief Complaint: Fall Clinical Impression: Pleural effusion associated with pulmonary infection, Elevated troponin, Intracranial hemorrhage Altered mental status Qualifiers: Altered mental status type: unspecified Qualified Code(s): R41.82 - Altered mental status, unspecified Pneumonia Qualifiers: Pneumonia type: due to unspecified organism Laterality: unspecified laterality Lung location: unspecified part of lung Qualified Code(s): J18.9 - Pneumonia, unspecified organism Patient Disposition: [facility] Time of Disposition Decision: 14:14 Discharge location: [facility] ED Condition: Fair
== END 2023-05-25 14:53 | disposition short-term general hospital (02) ==
PROVIDERS: Emergency Provider Emergency Medicine; PCP Internal Medicine
DX: I62.9 Nontraumatic intracranial hemorrhage, unspecified (principal); R79.89 Other specified abnormal findings of blood chemistry; J18.9 Pneumonia, unspecified organism; R41.82 Altered mental status, unspecified; G35 Multiple sclerosis; J90 Pleural effusion, not elsewhere classified; G20.A1 Parkinson's disease without dyskinesia, without mention of fluctuations; I10 Essential (primary) hypertension; Z79.899 Other long term (current) drug therapy; Z87.891 Personal history of nicotine dependence; W19.XXXA Unspecified fall, initial encounter
CPT/HCPCS: 36415; 51702; 70450; 71045; 73030; 80053; 81001; 82550; 83605; 83735; 84484; 85007; 85027; 85610; 87040; 93005; 96361; 96365; 96375; 99285